=== PATIENT | male | born 1945 | race Caucasian/White ===

== ENCOUNTER → 2017-04-28 | Outpatient (CLI) | payer BC ==
[~2017-04-28] MED LIST: ACET500C6 PO; ASPEC81 PO; ATOR-26 PO; CARV3.12 PO; FINA5TAB PO; LISI-461 PO; MULT-506 PO; TAMS0.4C38 PO; WARF5TAB7 PO; WARF5TAB90 PO
== END | disposition home or self-care (01) ==
LOC: C.LAB1850 15:14
PROVIDERS: ATTEND Urology
DX: N40.1 Benign prostatic hyperplasia with lower urinary tract symptoms (principal); R97.20 Elevated prostate specific antigen [PSA]

== ENCOUNTER → 2017-05-16 | Outpatient (CLI) | payer BC ==
[2017-05-16 12:53] LABS: ALT/SGPT 26 U/L (12-78); AST/SGOT 25 U/L (15-37); BLOOD UREA NITROGEN 18 mg/dl (7-18); BUN/CREATININE RATIO 18.1 (10-20); CALCIUM 8.8 mg/dl (8.5-10.1); CARBON DIOXIDE 23 mmol/L (21-32); CHLORIDE 107 mmol/L (98-107); CREATININE 0.97 mg/dl (0.60-1.40); GLUCOSE 85 mg/dl (70-99); POTASSIUM 4.8 mmol/L (3.5-5.1); SODIUM 137 mmol/L (136-145)
[2017-05-16 13:03] LABS: ALB/GLOB RATIO 1.2 (0.9-2); ALKALINE PHOSPHATASE 72 U/L (45-117)
== END | disposition home or self-care (01) ==
LOC: C.LAB1850 11:14
PROVIDERS: ATTEND Family Medicine
DX: R94.30 Abnormal result of cardiovascular function study, unspecified (principal); Z95.2 Presence of prosthetic heart valve; R68.89 Other general symptoms and signs

== ENCOUNTER → 2017-12-12 | Day surgery (SDC) | payer BC ==
--- NOTE | 2017-11-27 12:40 | PAT Medication Instructions ---
Service Date Nov 27, 2017. Current Home Medication List Acetaminophen (Tylenol), Unknown Dose PO UD PRN for Pain Aspirin (Aspirin Ec), 81 MG PO QPM Atorvastatin (Lipitor), 80 MG PO HS Carvedilol (Carvedilol), 1 TAB PO BID Finasteride (Proscar), 5 MG PO QAM Lisinopril (Zestril), 15 MG PO QAM Multivitamin (Multivitamin), 1 TAB PO QAM Tamsulosin Hcl (Flomax), 0.4 MG PO PM Medication Instructions For Your Scheduled Surgery - Hold the following medications the morning of surgery: Finasteride (Proscar), 5 MG PO QAM Lisinopril (Zestril), 15 MG PO QAM Multivitamin (Multivitamin), 1 TAB PO QAM - Take the following medications the morning of surgery with a sip of water: Acetaminophen (Tylenol), Unknown Dose PO UD PRN for Pain (if needed, can be taken up to four hours before surgery) Carvedilol (Carvedilol), 1 TAB PO BID - Take the following medications as scheduled the night before surgery: Acetaminophen (Tylenol), Unknown Dose PO UD PRN for Pain (if needed) Aspirin (Aspirin Ec), 81 MG PO QPM Atorvastatin (Lipitor), 80 MG PO HS Carvedilol (Carvedilol), 1 TAB PO BID Tamsulosin Hcl (Flomax), 0.4 MG PO PM If you have any questions please call us at [phone] or [phone] or [phone]
[2017-11-27 13:18] LABS: BASO % 0.3 %; BASO ABS # 0.02 K/uL (0-0.2); EOS % 2.9 %; EOS ABS # 0.18 K/uL (0-0.5); HEMATOCRIT 43.7 % (42-52); HEMOGLOBIN 14.9 g/dL (14.0-18.0); IG# 0.01 K/uL (0.00-0.02); LYMPH % 31.4 %; LYMPH ABS # 1.95 K/uL (1.2-3.4); MEAN CELL VOLUME 93.6 fL (80-100); MEAN CORPUSCULAR HEMOGLOBIN 31.9 pg (25-34); MEAN CORPUSCULAR HGB CONC 34.1 g/dl (32-36); MEAN PLATELET VOLUME 10.2 fL (7.4-10.4); MONO % 6.9 %; MONO ABS # 0.43 K/uL (0.11-0.59); NEUT % 58.3 %; NEUT ABS # 3.63 K/uL (1.4-6.5); PLATELET COUNT 149 K/uL (130-400); RED CELL DISTRIBUTION WIDTH CV 12.8 % (11.5-14.5); RED CELL DISTRIBUTION WIDTH SD 43.8 fL (36.4-46.3); WHITE BLOOD COUNT 6.22 K/uL (4.8-10.8)
[2017-11-27 13:27] LABS: PTT PATIENT 27.5 SECONDS (21.0-31.0)
[2017-11-27 13:38] LABS: CALCIUM 8.8 mg/dl (8.5-10.1); CREATININE 1.03 mg/dl (0.60-1.40); POTASSIUM 4.8 mmol/L (3.5-5.1)
--- NOTE | 2017-11-27 13:49 | DIAGNOSTIC IMAGING REPORT ---
TWO VIEW CHEST CLINICAL HISTORY: Preoperative examination. FINDINGS: PA and lateral chest radiographs are compared to study dated 12/30/2015 and correlated with chest CT dated 02/10/2016. A 3-lead cardiac AICD is unchanged in position and partially obscures the left upper chest. The patient is status post midline sternotomy end there is evidence of previous mitral valve surgery. The heart is enlarged. The pulmonary vasculature is noncongested. Chronic interstitial thickening is similar to previous. No airspace consolidation or pleural effusion is identified. There is no pneumothorax. The skeletal structures are osteopenic. Degenerative change and hyperkyphosis are noted in the thoracic spine. Bilateral shoulder arthroplasties are in place.. IMPRESSION: 1. Cardiomegaly and AICD. There is no radiographic evidence of congestive failure. 2. The lungs are clear. Electronically signed by: Arvin Smith M.D. 11/27/2017 1:48 PM Dictated Date/Time: 11/27/2017 1:45 PM
--- NOTE | 2017-12-11 17:20 | HISTORY & PHYSICAL EXAMINATION ---
DATE OF ADMISSION: 12/12/2017 CHIEF COMPLAINT: Olecranon bursitis of the right elbow. HISTORY OF PRESENT ILLNESS: Rickey is a pleasant 72-year-old male who has been complaining of right elbow pain. He initially had a large bursitis about 3 years ago. He was scheduled to have it operated on, but it went away. It has since returned. He has always had this on and off bursitis of his right elbow. It has become more and more painful. He has trouble going to the gym and doing exercises and is hurting his triceps more and more. Recent x-rays do show calcific tendonitis of the distal triceps tendon as well. He has elected to proceed with excision of the bursa and calcific tendonitis. PAST MEDICAL HISTORY: Significant for heart disease with pacemaker placement and Bovine mitral valve, hyperlipidemia, hypertension, and BPH. PAST SURGICAL HISTORY: Significant for tonsillectomy, left knee arthroscopy, left total knee arthroplasty, bilateral shoulder arthroscopies, and bilateral shoulder replacements, hernia repair and mitral valve replacement and pacemaker placement. ALLERGIES: POISON TETE. MEDICATIONS: Include atorvastatin, lisinopril, carvedilol, Flomax, and finasteride. FAMILY HISTORY: Significant for heart disease. SOCIAL HISTORY: He is , has 2 kids. He has 1-2 drinks per day. His is able to take care of him. REVIEW OF SYSTEMS: He complains of right elbow pain and swelling. All other pertinent review of systems are negative. PHYSICAL EXAMINATION: CONSTITUTIONAL: Well-developed, well-nourished male, in no apparent distress. HEENT: Pupils equal, round and reactive to light. Extraocular motion is intact. Oral mucosa is pink and moist. HEART: Regular rate per radial pulse. LUNGS: [place] symmetrically bilaterally with no audible breath sounds. ABDOMEN: Soft, nontender, nondistended. MUSCULOSKELETAL: On physical examination of the right elbow, there is a moderate size olecranon bursa. This is slightly fluctuant. There are no signs of infection. He has tenderness to palpation directly over the area of the triceps. He has 5/5 muscle strength with elbow extension. X-rays do show moderate area of calcific tendonitis of the distal triceps tendon. There is a moderately sized olecranon bursa as well which we can see in the soft tissue shadows. There is no arthritis. 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 PLAN: Will proceed with excision of olecranon bursa and excision of calcific tendonitis from the triceps tendon. Postoperatively, he will be placed in a soft dressing and likely discharged to home on oral pain medications.
[~2017-12-12] VITALS: Ht 193 cm; Wt 113.0 kg
[~2017-12-12] MED LIST changes: +ACET-1256 PO; -ACET500C6 PO; +ACETAMINOPHEN 500 MG TAB PO SCH; -ASPEC81 PO; +ASPI81TA28 PO; +ATROPINE SULFATE 0.1 MG/ML 5ML SYR IV PRN; +BUPIVACAINE 0.25% 30 ML VIAL ONE; -CARV3.12 PO; +CEFAZOLIN 2000MG IV PUSH 15 ML IV SCH; +CRG125 PO; +DEXAMETHASONE SOD INJ 4 MG/ML VIAL ONE; +EpHEDrine SULFATE INJ 50 MG/ML AMP IV PRN; +EpHEDrine SULFATE INJ 50 MG/ML AMP ONE; +EpINEphrine INJ 1MG/ML AMP 1 MG/ML AMP ONE; +FAMOTIDINE 20 MG TAB PO SCH; +FENTANYL CITRATE INJ 50 MCG/1 ML 2 ML VIAL IV PRN; +FENTANYL CITRATE INJ 50 MCG/1 ML 2 ML VIAL ONE; +GABAPENTIN 300 MG CAP PO SCH; +LACTATED RINGER'S 1000ML 1,000 ML IV SCH; +LACTATED RINGER'S 1000ML IV SCH; +LIDOCAINE HCL 2% 2 ML VIAL (20MG/ML) ONE; +MIDAZOLAM HCL 1 MG/ML 2ML VIAL ONE; +ONDANSETRON INJ 2 MG/ML 2 ML VIAL IV PRN; +ONDANSETRON INJ 2 MG/ML 2 ML VIAL ONE; +PHENYLEPHRINE 100MCG/ML 5ML SYR ONE; +PROPOFOL IV EMULSION 10 MG/ML 20 ML VIAL ONE; +SODIUM CHLORIDE 0.9% 1000ML 1,000 ML IV SCH; +TRAM-10 PO; +TRAMADOL HCL 50 MG TAB PO PRN; -WARF5TAB7 PO; -WARF5TAB90 PO
--- NOTE | 2017-12-12 10:55 | History & Physical Bridge Note ---
H&P Re-Evaluation Bridge Note: I have examined the patient, reviewed the History & Physical and in the interval since the performance of the History & Physical I have noted the following changes of clinical significance: No changes noted
[2017-12-12 11:19] VITALS: BP 122/78; PULSE 68; TEMP 36.4; Ht 193 cm; Wt 113.0 kg
--- NOTE | 2017-12-12 14:41 | [facility] Post Operative Brief Note ---
Immediate Operative Summary Operative Date December 12, 2017. Pre-Operative Diagnosis Right elbow chronic olecranon bursitis Post-Operative Diagnosis Right elbow chronic olecranon bursitis, triceps tendon tear Procedure(s) Performed Right Elbow Olecranon Bursectomy, triceps tendon repair Surgeon Dr. Valdivia Zumba Instructor Surgeon(s) Marko Rutherford PA-C Estimated Blood Loss 10 cc Findings Consistent with Post-Op Diagnosis Specimens none, as per surgeon Drains None Anesthesia Type General Complication(s) none Disposition Disposition: Recovery Room / PACU
--- NOTE | 2017-12-12 14:46 | Discharge Instructions ---
Discharge Instructions Date of Service December 12, 2017. Admission Reason for Admission: Chronic Olecranon Bursitis Right Elbow Discharge Discharge Diagnosis / Problem: SAME ABOVE Discharge Goals Goal(s): Decrease discomfort, Improve function Activity Recommendations Activity Limitations: as noted below Lifting Limitations: until after follow-up appointment Exercise/Sports Limitations: until after follow-up appointment . Instructions / Follow-Up Instructions / Follow-Up MEDICATIONS: * Resume previous medications unless instructed otherwise by your surgeon. * Always take pain medication on a full stomach or with food to avoid upset stomach. * Do not drink alcohol or drive while taking narcotics. * Ibuprofen or Tylenol may be taken if narcotic not needed. SPECIAL CARE INSTRUCTIONS: __ None _X_ Keep extremity elevated and iced x 48 hours; apply ice 20-30 minutes 8-10 times/day. May remove at night. _X_ Sling _X_24 hrs/day __ Remove at night __ Shoulder Immobilizer __ 24 hrs/day __ Remove at night _X_ Dressing _X_ Maintain until seen in office, may shower with plastic over site __ Remove dressings in 24-48 hours and then may shower __ Cover incisions with band-aids after showering __ Do not remove steri-strips Call physician if chills or temperature rises above 102 degrees or pain unrelieved by prescribed pain medications at . . Current Hospital Diet Patient's current hospital diet: Discharge Diet Recommended Diet: Regular Diet Fluid Restriction: None Procedures Procedures Performed: Right Elbow Olecranon Bursectomy, triceps tendon repair Pending Studies Studies pending at discharge: no Laboratory Results Lipid Panel Test 12/12/17 10:14 Range/Units Triglycerides Level 128 0-150 mg/dl Cholesterol Level 150 0-200 mg/dl HDL Cholesterol 61 mg/dl Cholesterol/HDL Ratio 2.5 LDL Cholesterol, Calculated 63 mg/dl Medical Emergencies . Who to Call and When: Medical Emergencies: If at any time you feel your situation is an emergency, please call 911 immediately. . Non-Emergent Contact Non-Emergency issues call your: Primary Care Provider Call Non-Emergent contact if: you have a fever, temperature is above 101.5 . "Provider Documentation" section prepared by Christian Rutherford. .
--- NOTE | 2017-12-12 14:50 | DIAGNOSTIC IMAGING REPORT ---
R ELBOW 2 VIEWS CLINICAL HISTORY: RT ELBOW BURSA Fluoroscopy time: 37.9 seconds FINDINGS: A single fluoroscopic spot image of the right elbow was submitted for review. Focal skin defect at the olecranon consistent with the site of incision. IMPRESSION: Fluoroscopy provided for excision of an olecranon bursa. Electronically signed by: Sammy Jones M.D. 12/12/2017 2:48 PM Dictated Date/Time: 12/12/2017 2:47 PM
--- NOTE | 2017-12-12 15:09 | Anesthesiology Progress Note ---
Anesthesia Post Op Note Date & Time December 12, 2017 at 15:08 Vital Signs Vital Signs Past 12 Hours Date Time Temp Pulse Resp B/P (MAP) Pulse Ox O2 Delivery O2 Flow Rate FiO2 12/12/17 11:19 36.4 68 18 122/78 (93) Room Air Notes Mental Status: alert / awake / arousable, participated in evaluation Pt Amnestic to Procedure: Yes Nausea / Vomiting: adequately controlled Pain: adequately controlled Airway Patency, RR, SpO2: stable & adequate BP & HR: stable & adequate Hydration State: stable & adequate Anesthetic Complications: no major complications apparent
[2017-12-12 15:40] VITALS: BP 148/75; PULSE 50; TEMP 36.4; O2SAT 98
--- NOTE | 2017-12-12 15:45 | OPERATIVE REPORT ---
DATE OF OPERATION: 12/12/2017 PREOPERATIVE DIAGNOSIS: Chronic olecranon bursitis of the right elbow. POSTOPERATIVE DIAGNOSIS: Chronic olecranon bursitis with a triceps tendon tear. PROCEDURE: An open right shoulder olecranon bursectomy with an open triceps tendon repair. SURGEON: Dr. Paras Valdivia TRACER CLERK: Christian Rutherford PA-C, whose assistance was necessary for retraction and closure. ANESTHESIA: General. COMPLICATIONS: None. CONDITION: Stable to PACU. INDICATIONS: Rickey is a pleasant 72-year-old male who has been dealing with chronic right elbow olecranon bursitis. It waxed and waned over several years. Recently it stayed swollen and has not gone down. He has elected to proceed with olecranon bursectomy. OPERATION AND FINDINGS: On 12/12/2017, he arrived at [facility] for the above procedure. He was seen in the preoperative holding area and the operative extremity was identified and signed. He was given a preoperative antibiotic, taken back to the operating room, laid on the table in supine position and put under general anesthesia. The right elbow was then prepped and draped in sterile fashion. Time-out was done. The patient's operative extremity was properly identified. A midline incision was made over the olecranon. Dissection was taken down to the bursa. The bursal tissue was excised with tenotomy scissors. Once the bursal tissue was excised, it was evident that there was a tear of the triceps tendon. There were small areas of calcific tendonitis that were excised. A rongeur was used to remove any osteophytes off the tip of the olecranon. The triceps tendon was then repaired with 2 Arthrex 4.5 mm SutureTak anchors. The FiberWires were passed through the tendon and tied down appropriately. A #1 Vicryl suture was then used to close down the remaining aspects of the triceps tendon. This gave a nice repair back down to the posterior olecranon. The elbow was brought through a full range of motion and everything felt to be stable. There was not too much tension on the repair. The wound was then irrigated and closed with 3-0 Vicryl and 4-0 nylon suture. He was placed in a posterior splint, extubated, and transferred to a [facility] and taken to postanesthesia care in stable condition. He tolerated the procedure well. I attest to the content of the Intraoperative Record and any orders documented therein. Any exception s are noted below.
[2017-12-12 16:10] VITALS: BP 131/73; PULSE 52; TEMP 36.4; O2SAT 98
== END | disposition home or self-care (01) ==
LOC: C.ACU 10:36
PROVIDERS: ATTEND Orthopaedic Surgery
DX: S46.311A Strain of muscle, fascia and tendon of triceps, right arm, initial encounter (principal); M70.21 Olecranon bursitis, right elbow; X58.XXXA Exposure to other specified factors, initial encounter; I10 Essential (primary) hypertension; E78.5 Hyperlipidemia, unspecified; N40.0 Benign prostatic hyperplasia without lower urinary tract symptoms; Z95.810 Presence of automatic (implantable) cardiac defibrillator; Z95.2 Presence of prosthetic heart valve; Z96.652 Presence of left artificial knee joint; Z96.611 Presence of right artificial shoulder joint; Z96.612 Presence of left artificial shoulder joint; Z82.49 Family history of ischemic heart disease and other diseases of the circulatory system

== ENCOUNTER → 2017-12-12 | Outpatient (CLI) | payer BC ==
[~2017-12-12] MED LIST changes: -ACETAMINOPHEN 500 MG TAB PO SCH; -ATROPINE SULFATE 0.1 MG/ML 5ML SYR IV PRN; -BUPIVACAINE 0.25% 30 ML VIAL ONE; -CEFAZOLIN 2000MG IV PUSH 15 ML IV SCH; -DEXAMETHASONE SOD INJ 4 MG/ML VIAL ONE; -EpHEDrine SULFATE INJ 50 MG/ML AMP IV PRN; -EpHEDrine SULFATE INJ 50 MG/ML AMP ONE; -EpINEphrine INJ 1MG/ML AMP 1 MG/ML AMP ONE; -FAMOTIDINE 20 MG TAB PO SCH; -FENTANYL CITRATE INJ 50 MCG/1 ML 2 ML VIAL IV PRN; -FENTANYL CITRATE INJ 50 MCG/1 ML 2 ML VIAL ONE; -GABAPENTIN 300 MG CAP PO SCH; -LACTATED RINGER'S 1000ML 1,000 ML IV SCH; -LACTATED RINGER'S 1000ML IV SCH; -LIDOCAINE HCL 2% 2 ML VIAL (20MG/ML) ONE; -MIDAZOLAM HCL 1 MG/ML 2ML VIAL ONE; -ONDANSETRON INJ 2 MG/ML 2 ML VIAL IV PRN; -ONDANSETRON INJ 2 MG/ML 2 ML VIAL ONE; -PHENYLEPHRINE 100MCG/ML 5ML SYR ONE; -PROPOFOL IV EMULSION 10 MG/ML 20 ML VIAL ONE; -SODIUM CHLORIDE 0.9% 1000ML 1,000 ML IV SCH; -TRAMADOL HCL 50 MG TAB PO PRN
[2017-12-12 12:38] LABS: ALBUMIN 4.2 gm/dl (3.4-5.0); ALT/SGPT 24 U/L (12-78); AST/SGOT 22 U/L (15-37); BLOOD UREA NITROGEN 15 mg/dl (7-18); CALCIUM 9.1 mg/dl (8.5-10.1); CARBON DIOXIDE 29 mmol/L (21-32); CHOLESTEROL 150 mg/dl (0-200); CREATININE 1.07 mg/dl (0.60-1.40); GLUCOSE 101 mg/dl (70-99); POTASSIUM 5.1 mmol/L (3.5-5.1); SODIUM 141 mmol/L (136-145)
[2017-12-12 12:50] LABS: ALKALINE PHOSPHATASE 68 U/L (45-117); LDL CHOLESTEROL CALCULATED 63 mg/dl; TOTAL PROTEIN 7.6 gm/dl (6.4-8.2)
== END | disposition home or self-care (01) ==
LOC: C.LAB1850 10:09
PROVIDERS: ATTEND Family Medicine
DX: Z00.00 Encounter for general adult medical examination without abnormal findings (principal); I50.22 Chronic systolic (congestive) heart failure

== ENCOUNTER 2020-07-30 16:04 | Inpatient (IN) ==
[2020-07-30] MEDS ORDERED: DAPTOmycin 525 MG in SYRINGE 0 ML IV STA (16:28)
[2020-07-30] MEDS ORDERED: cefTRIAXone SODIUM 2,000 MG/70 ML BAG IV STA (16:29)
--- NOTE | 2020-07-30 16:51 | XRay Report ---
XR chest 1V portable HISTORY: SEPSIS COMPARISON: Chest CTA 07/29/2020. FINDINGS: No pneumothorax or no pleural effusions. The heart is borderline enlarged. This remains unc hanged. Tortuous thoracic aorta. Poststernotomy changes and left-sided pacemaker/defibrillator again noted. No new focal lung consolidations to suggest pneumonia. No evidence for pulmonary edema. Bilate ral shoulder arthroplasties are again noted. IMPRESSION: No acute process. ACT 112: Negative or not required by law. Electronically signed by: Sammy Jones M.D. 07/30/2020 4:50 PM
--- NOTE | 2020-07-30 16:56 | Emergency Department Note ---
Impression & Plan Bacteremia, Elevated troponin, Thrombocytopenia ED Provider Note NAME: ANDRZEJ BARRAZA AGE: 75 SEX: M : 1945 ARRIVES VIA: Walk-In INFORMANT: Patient, ED PROVIDER(S): Kaleb Jacob DO CHIEF COMPLAINT: Fever HPI: The patient is a 75-year-old male who presented to the emergency department for an evaluation of febrile illness. The patient has been experiencing febrile illness over the last 5 days. His states that she has been checking his temperature multiple times it was not found to be elevated. He presented to emergency department last evening for an evaluation. At that time he was noted to have an elevated temperature but this was not found to be the case on repeated temperature measurements. The patient denies having any rashes. He denies having any diarrhea. He has no cuts in his skin that he knows of. He was seen in our facility yesterday and signed out AGAINST MEDICAL ADVICE. He was started on doxycycline. The patient states that he return today at the request of our department because he was found to have a positive blood culture. The patient has 2 blood cultures are positive for gram-positive cocci in clusters. The patient states that he has had some shortness of breath. He does have a slight cough which is not productive. The patient has a history of valve replacement surgery. ROS: See above HPI for pertinent positives & negatives. A total of 10 systems reviewed and were otherwise negative. PAST MEDICAL HISTORY: See Below PAST SURGICAL HISTORY: See Below FAMILY HISTORY: See Below SOCIAL HISTORY: See Below HOME MEDICATIONS: See Below ALLERGIES: See Below VITALS: See Below PHYSICAL EXAMINATION: GENERAL: Patient is awake alert in no acute distress patient is resting comfortably and showing no signs of anxiety EYES: The conjunctivae are clear. The pupils are round and reactive. EARS, NOSE, MOUTH AND THROAT: The nose is without any evidence of any deformity. NECK: The neck is nontender and supple. RESPIRATORY: Normal respiratory effort was noted. There was no tachypnea or conversational dyspnea. Slight rales were noted at the left base. CARDIOVASCULAR: Regular rate and rhythm noted there no murmurs rubs or gallops normal S1 normal S2. GASTROINTESTINAL: The abdomen is soft. Abdomen is nontender. MUSCULOSKELETAL/EXTREMITIES: There is no evidence of gross deformity full range of motion is noted in the hips and shoulders. SKIN: Skin was warm and dry. Trace pedal edema was noted bilaterally. NEUROLOGIC: Patient is awake alert and oriented x3. MEDICAL DECISION MAKING: The patient is a 75-year-old male who presented to the emergency department with his significant other for an evaluation of febrile illness. The patient's had malaise and subjective fever. He was initially seen in our facility yesterday for similar complaints. At that time he did have a complete work-up including blood cultures. It was advised that he stay in the hospital at that time but the patient did not wish to stay in the hospital and left AGAINST MEDICAL ADVICE. He was started on oral antibiotic regimen. The patient returns to the emergency department today at our request after his blood cultures were positive for gram-positive cocci in clusters. The patient does have a history of aortic valve replacement. For this reason he was treated with IV antibiotics which would cover gram-positive cocci as well as other pathogens. No definite source for the patient's bacteremia could be found. I discussed the patient's laboratory and radiographic studies with him and his significant other. I discussed his case with the on-call [facility]ist. They have agreed to evaluate the patient in the emergency department for further management and disposition. The patient did have an elevation in his white blood cell count compared to yesterday however he was treated with Decadron yesterday because of the possibility of COVID-19 infection. Triage Nursing notes reviewed. Prior medical records reviewed Vital Signs: reviewed and remarkable for elevated blood pressure and bradycardia. Differential diagnosis: Viral syndrome, otitis, pharyngitis, pneumonia, influenza, meningitis, urinary tract infection, sepsis, bacteremia, as well as other pathologies. ER treatment provided: See below Diagnostics interpreted by me: ECG: EKG was obtained in the emergency department. My interpretation is ventricular paced rhythm at 60 bpm. There were no PVCs or tanana beats noted. This was compared to a tracing from July 292019. No significant changes were noted. Cardiac Monitoring: An order was placed for continuous cardiac monitoring. The monitor shows a rate of 65 bpm with paced rhythm. Laboratory studies: As stated above and show below. Imaging studies: See below Consultation(s): 1739: I discussed this case with Dr. Hardwick who is on-call for the [facility] group. Past Med/Surg History Medical History Coronary artery disease Hyperlipidemia Hypertension Social History Smoking Status: Former smoker Tobacco Type: Cigarettes Hx Alcohol Use: Yes Alcohol type: wine and hard liquor Hx Substance Use: No Preferred Language: Malay Communication Ability: Effective Sliding Joint Maker Required: No Beliefs That Will Affect Care: None Current Living Situation: Spouse Other Information That Helps Us Care for You: No Feels Safe at Home: Yes Safety Concerns: Feels Safe At This Time Assistive Devices: None Allergies Allergies Allergy/AdvReac Type Severity Reaction Status Date / Time adhesive AdvReac Severe rips his Verified 07/30/20 17:25 skin Poison Ann Extract/Poison Allergy Severe RASH--NEEDS Uncoded 07/30/20 17:25 [place] Extra STEROID SHOTS FOR REACTION Home Meds Home Medications Medication Instructions Recorded Confirmed acetaminophen [Tylenol] 650 mg PO QID PRN 07/29/20 07/30/20 aspirin 81 mg PO DAILY 07/29/20 07/30/20 atorvastatin 80 mg PO HS 07/29/20 07/30/20 carvedilol 25 mg PO BID 07/29/20 07/30/20 finasteride 5 mg PO QAM 07/29/20 07/30/20 lisinopril 40 mg PO QAM 07/29/20 07/30/20 multivitamin 1 tab PO QAM 07/29/20 07/30/20 tamsulosin 0.8 mg PO QPM 07/29/20 07/30/20 Saima 128 1 applic OPR HS 07/30/20 07/30/20 Previous Rx's Medication Instructions Recorded doxycycline hyclate 100 mg PO BID 10 Days #20 tab 07/29/20 sod phos di, mono-K phos mono 1 tab PO BID #6 tab 07/29/20 [Phospha] Results & Data (ED) Vital Signs Vital Signs - 24 hr 07/30/20 16:05 07/30/20 16:44 07/30/20 17:38 Temperature 36.5 C Temperature Source Oral Pulse Rate 66 Pulse Rate from SpO2 Sensor Respiratory Rate 18 Respiratory Effort / Characteristics Spontaneous Non-Labored Spontaneous Blood Pressure 124/75 Blood Pressure Mean 91 Blood Pressure Position Sitting Pulse Oximetry 96 Oxygen Delivery Method Room Air Room Air Room Air Sepsis Recent Fever Within 48 Hours No Sepsis New/Unexplained Change in Mental Status No Sepsis Action Taken by Nursing No Action Required 07/30/20 18:00 07/30/20 18:20 07/30/20 18:30 Temperature Temperature Source Pulse Rate 56 L 58 L 56 L Pulse Rate from SpO2 Sensor 57 L 55 L Respiratory Rate 20 17 Respiratory Effort / Characteristics Blood Pressure 141/91 H 146/96 H Blood Pressure Mean 101 110 Blood Pressure Position Pulse Oximetry 98 98 98 Oxygen Delivery Method Room Air Sepsis Recent Fever Within 48 Hours Sepsis New/Unexplained Change in Mental Status Sepsis Action Taken by Nursing 07/30/20 18:40 07/30/20 18:50 07/30/20 19:00 Temperature Temperature Source Pulse Rate 59 L 57 L 59 L Pulse Rate from SpO2 Sensor 59 L 57 L 60 Respiratory Rate 23 Respiratory Effort / Characteristics Blood Pressure 146/85 H Blood Pressure Mean 91 Blood Pressure Position Pulse Oximetry 99 99 100 Oxygen Delivery Method Sepsis Recent Fever Within 48 Hours Sepsis New/Unexplained Change in Mental Status Sepsis Action Taken by Nursing 07/30/20 19:10 07/30/20 19:20 07/30/20 19:30 Temperature Temperature Source Pulse Rate 59 L 60 61 Pulse Rate from SpO2 Sensor 59 L 60 61 Respiratory Rate 23 17 22 Respiratory Effort / Characteristics Blood Pressure Blood Pressure Mean Blood Pressure Position Pulse Oximetry 99 100 98 Oxygen Delivery Method Sepsis Recent Fever Within 48 Hours Sepsis New/Unexplained Change in Mental Status Sepsis Action Taken by Nursing 07/30/20 19:31 07/30/20 19:40 07/30/20 20:01 Temperature Temperature Source Pulse Rate 61 62 61 Pulse Rate from SpO2 Sensor 61 62 62 Respiratory Rate 19 24 23 Respiratory Effort / Characteristics Blood Pressure 143/84 H 123/82 Blood Pressure Mean 94 94 Blood Pressure Position Pulse Oximetry 98 98 97 Oxygen Delivery Method Sepsis Recent Fever Within 48 Hours Sepsis New/Unexplained Change in Mental Status Sepsis Action Taken by Nursing 07/30/20 20:31 07/30/20 21:00 Temperature Temperature Source Pulse Rate 63 64 Pulse Rate from SpO2 Sensor 63 64 Respiratory Rate 23 17 Respiratory Effort / Characteristics Blood Pressure 132/76 133/77 Blood Pressure Mean 94 81 Blood Pressure Position Pulse Oximetry 96 97 Oxygen Delivery Method Sepsis Recent Fever Within 48 Hours Sepsis New/Unexplained Change in Mental Status Sepsis Action Taken by Group Home Medications Current Medication List: was personally reviewed by me Laboratory Data Attestation: I reviewed the patient's lab results. Result diagrams: 07/30/20 17:05 12/24/20 17:05 Lab Results 07/30/20 07/30/20 07/30/20 Range/Units 17:05 17:05 17:05 WBC 14.24 H (4.8-10.8) K/uL RBC 4.47 L (4.7-6.1) M/uL Hgb 14.1 (14.0-18.0) g/dL Hct 40.6 L (42-52) % MCV 90.8 (80-100) fL MCH 31.5 (25-34) pg MCHC 34.7 (32-36) g/dL RDW Std Deviation 43.5 (36.4-46.3) fL RDW Coeff of Carlitos 13.1 (11.5-14.5) % Plt Count 118 L (130-400) K/uL MPV 11.1 H (7.4-10.4) fL Immature Gran % (Auto) 0.4 % Neut % (Auto) 88.5 % Lymph % (Auto) 5.1 % [place] % (Auto) 5.9 % Eos % (Auto) 0.0 % Baso % (Auto) 0.1 % Neut # (Auto) 12.60 H (1.4-6.5) K/uL Lymph # (Auto) 0.73 L (1.2-3.4) K/uL [place] # (Auto) 0.84 H (0.11-0.59) K/uL Eos # (Auto) 0.00 (0-0.5) K/uL Baso # (Auto) 0.01 (0-0.2) K/uL Immature Gran # (Auto) 0.06 H (0.00-0.02) K/uL ESR 26 H (0-14) mm/hr PT Cancelled INR Cancelled APTT Cancelled PTT Ratio Cancelled Sodium (136-145) mmol/L Potassium (3.5-5.1) mmol/L Chloride (98-107) mmol/L Carbon Dioxide (21-32) mmol/L Anion Gap (3-11) BUN (7-18) mg/dl Creatinine (0.6-1.4) mg/dl Est Cr Clr Drug Dosing ml/min Est GFR ( Amer) Est GFR (Non-Af Amer) BUN/Creatinine Ratio (10-20) Glucose (70-99) mg/dl Lactate (0.4-2.0) mmol/L Calcium (8.5-10.1) mg/dl Magnesium (1.8-2.4) mg/dl Total Bilirubin (0.2-1) mg/dl AST (15-37) U/L ALT (12-78) U/L Alkaline Phosphatase (45-117) U/L Troponin I (0-0.045) ng/ml C-Reactive Protein (0-0.29) mg/dl Total Protein (6.4-8.2) gm/dl Albumin (3.4-5.0) gm/dl Globulin (2.5-4.0) gm/dl Albumin/Globulin Ratio (0.9-2) Procalcitonin (0-0.5) ng/ml COVID-19 Eval Order SARS-CoV-2, RNA, NAAT (NEGATIVE) 07/30/20 07/30/20 07/30/20 Range/Units 17:05 17:05 17:05 WBC (4.8-10.8) K/uL RBC (4.7-6.1) M/uL Hgb (14.0-18.0) g/dL Hct (42-52) % MCV (80-100) fL MCH (25-34) pg MCHC (32-36) g/dL RDW Std Deviation (36.4-46.3) fL RDW Coeff of Carlitos (11.5-14.5) % Plt Count (130-400) K/uL MPV (7.4-10.4) fL Immature Gran % (Auto) % Neut % (Auto) % Lymph % (Auto) % [place] % (Auto) % Eos % (Auto) % Baso % (Auto) % Neut # (Auto) (1.4-6.5) K/uL Lymph # (Auto) (1.2-3.4) K/uL [place] # (Auto) (0.11-0.59) K/uL Eos # (Auto) (0-0.5) K/uL Baso # (Auto) (0-0.2) K/uL Immature Gran # (Auto) (0.00-0.02) K/uL ESR (0-14) mm/hr PT INR APTT PTT Ratio Sodium 134 L (136-145) mmol/L Potassium 4.1 (3.5-5.1) mmol/L Chloride 106 (98-107) mmol/L Carbon Dioxide 20 L (21-32) mmol/L Anion Gap 9.0 (3-11) BUN 22 H (7-18) mg/dl Creatinine 1.03 (0.6-1.4) mg/dl Est Cr Clr Drug Dosing 86.0 ml/min Est GFR ( Amer) 83.1 Est GFR (Non-Af Amer) 71.7 BUN/Creatinine Ratio 21.4 H (10-20) Glucose 203 H (70-99) mg/dl Lactate 2.0 (0.4-2.0) mmol/L Calcium 8.5 (8.5-10.1) mg/dl Magnesium 2.3 (1.8-2.4) mg/dl Total Bilirubin 0.9 (0.2-1) mg/dl AST 55 H (15-37) U/L ALT 61 (12-78) U/L Alkaline Phosphatase 59 (45-117) U/L Troponin I 0.321 H* (0-0.045) ng/ml C-Reactive Protein 9.09 H (0-0.29) mg/dl Total Protein 6.9 (6.4-8.2) gm/dl Albumin 3.2 L (3.4-5.0) gm/dl Globulin 3.7 (2.5-4.0) gm/dl Albumin/Globulin Ratio 0.9 (0.9-2) Procalcitonin 0.47 (0-0.5) ng/ml COVID-19 Eval Order SARS-CoV-2, RNA, NAAT (NEGATIVE) 07/30/20 07/30/20 07/30/20 Range/Units 18:20 18:20 18:27 WBC (4.8-10.8) K/uL RBC (4.7-6.1) M/uL Hgb (14.0-18.0) g/dL Hct (42-52) % MCV (80-100) fL MCH (25-34) pg MCHC (32-36) g/dL RDW Std Deviation (36.4-46.3) fL RDW Coeff of Carlitos (11.5-14.5) % Plt Count (130-400) K/uL MPV (7.4-10.4) fL Immature Gran % (Auto) % Neut % (Auto) % Lymph % (Auto) % [place] % (Auto) % Eos % (Auto) % Baso % (Auto) % Neut # (Auto) (1.4-6.5) K/uL Lymph # (Auto) (1.2-3.4) K/uL [place] # (Auto) (0.11-0.59) K/uL Eos # (Auto) (0-0.5) K/uL Baso # (Auto) (0-0.2) K/uL Immature Gran # (Auto) (0.00-0.02) K/uL ESR (0-14) mm/hr PT 11.6 INR 1.1 APTT 31.3 H PTT Ratio 1.1 Sodium (136-145) mmol/L Potassium (3.5-5.1) mmol/L Chloride (98-107) mmol/L Carbon Dioxide (21-32) mmol/L Anion Gap (3-11) BUN (7-18) mg/dl Creatinine (0.6-1.4) mg/dl Est Cr Clr Drug Dosing ml/min Est GFR ( Amer) Est GFR (Non-Af Amer) BUN/Creatinine Ratio (10-20) Glucose (70-99) mg/dl Lactate (0.4-2.0) mmol/L Calcium (8.5-10.1) mg/dl Magnesium (1.8-2.4) mg/dl Total Bilirubin (0.2-1) mg/dl AST (15-37) U/L ALT (12-78) U/L Alkaline Phosphatase (45-117) U/L Troponin I (0-0.045) ng/ml C-Reactive Protein (0-0.29) mg/dl Total Protein (6.4-8.2) gm/dl Albumin (3.4-5.0) gm/dl Globulin (2.5-4.0) gm/dl Albumin/Globulin Ratio (0.9-2) Procalcitonin (0-0.5) ng/ml COVID-19 Eval [facility] SARS-CoV-2, RNA, NAAT NEGATIVE (NEGATIVE) Administered Medications Acetaminophen (Acetaminophen 325 Mg Tab) 650 mg PO QID PRN PRN Reason: FEVER/PAIN Stop: 08/29/20 22:46 Last Admin: 07/31/20 02:36 Dose: 650 mg Documented by: [id number] Aspirin (Aspirin 81 Mg Ectab) 81 mg PO DAILY [facility] Stop: 08/30/20 08:59 Last Admin: 07/31/20 08:53 Dose: 81 mg Documented by: [id number] Atorvastatin Calcium (Atorvastatin 40 Mg Tab) 80 mg PO HS [facility] Stop: 08/29/20 22:46 Last Admin: 07/31/20 00:09 Dose: 80 mg Documented by: [id number] Carvedilol (Carvedilol 25 Mg Tab) 25 mg PO BID [facility] Stop: 08/29/20 22:46 Last Admin: 07/31/20 08:52 Dose: Not Given Documented by: [id number] Admin: 07/31/20 00:09 Dose: 25 mg Documented by: [id number] Finasteride (Finasteride 5 Mg Tab) 5 mg PO QAM [facility] Stop: 08/30/20 08:59 Last Admin: 07/31/20 08:53 Dose: 5 mg Documented by: [id number] Heparin Sodium (Porcine) (Heparin Sod 5,000 Unit/0.5 Ml Vial) 5,000 units SQ Q12 [facility] Stop: 08/30/20 08:59 Last Admin: 07/31/20 10:37 Dose: 5,000 units Documented by: [id number] Lisinopril (Lisinopril 40 Mg Tab) 40 mg PO QAM [facility] Stop: 08/30/20 08:59 Last Admin: 07/31/20 08:53 Dose: 40 mg Documented by: [id number] Multivitamins (Multivitamin Tab) 1 tab PO QAM [facility] Stop: 08/30/20 08:59 Last Admin: 07/31/20 08:53 Dose: 1 tab Documented by: [id number] Potassium Phosphate (Pot Phosphate Monobasic W/ Sod Tab) 1 tab PO BID [facility] Stop: 08/29/20 22:46 Last Admin: 07/31/20 08:53 Dose: 1 tab Documented by: [id number] Admin: 07/31/20 00:09 Dose: 1 tab Documented by: [id number] Tamsulosin HCl (Tamsulosin Hcl 0.4 Mg Cap) 0.8 mg PO QPM [facility] Stop: 08/29/20 22:46 Last Admin: 07/31/20 00:10 Dose: 0.8 mg Documented by: [id number] Discontinued Medications Daptomycin 525 mg/ Syringe 10.5 mls @ 0 mls/min IV NOW STA Stop: 07/30/20 16:29 Last Admin: 07/30/20 17:55 Dose: 5 mls/min Documented by: [id number] Ceftriaxone Sodium (Rocephin) 2,000 mg in 70 mls @ 140 mls/hr IV NOW STA Stop: 07/30/20 16:58 Last Infusion: 07/30/20 17:57 Dose: 0 mls/hr Documented by: [id number] Admin: 07/30/20 17:27 Dose: 140 mls/hr Documented by: [id number] Imaging Data Radiologist's Impression: Patient: ANDRZEJ BARRAZA Admit Date: 07/30/20 MR#: [id number] Address1: [address] [place] [address] Acct ID:[id number] Address2: Date: 1945 [facility] Zip: [place] [address] Age: 75 Location: ED Sex: M Room/Bed: Att Phy: Diagnosis: BLOOD INFECTION Anne Phy: Hemal Springer MD Service Date: 07/30/20 Fam Phy: Interpreting Phy: Sammy Jones MD Admit Phy: Ordering Phy: Kaleb Jacob DO cc: ~ XR chest 1V portable HISTORY: SEPSIS COMPARISON: Chest CTA 07/29/2020. FINDINGS: No pneumothorax or no pleural effusions. The heart is borderline enlarged. This remains unchanged. Tortuous thoracic aorta. Poststernotomy changes and left-sided pacemaker/defibrillator again noted. No new focal lung consolidations to suggest pneumonia. No evidence for pulmonary edema. 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 IMPRESSION: No acute process. ACT 112: Negative or not required by law. Electronically signed by: Sammy Jones M.D. 07/30/2020 4:50 PM Dictated: 07/30/[id number] Transcribed: 07/30/201648 Blood Pressure Blood Pressure Findings: Elevated blood pressure Blood Pressure Disposition: further management by hospitalist Discharge Plan Visit Data Chief Complaint: Infection Stated Complaint: BLOOD INFECTION ED Provider: Kaleb Jacob Discharge Problem: Bacteremia, Elevated troponin, Thrombocytopenia Patient Disposition: Admitted As Inpatient Condition: Good Discharge Instructions Interventions: ED Discharge Assessment Last Done: 07/30/20 22:26
[2020-07-30 17:20] LABS: Basophils # (auto) 0.01 K/uL (0-0.2); Basophils % (auto) 0.1 %; Hematocrit (blood only) 40.6 % (42-52); Hemoglobin 14.1 g/dL (14.0-18.0); Immature Granulocytes # (auto) 0.06 K/uL (0.00-0.02); Immature Granulocytes % (auto) 0.4 %; Lymphocytes # (auto) 0.73 K/uL (1.2-3.4); Lymphocytes % (auto) 5.1 %; Mean Corpuscular Hemoglobin 31.5 pg (25-34); Mean Corpuscular Hgb Conc 34.7 g/dL (32-36); Mean Corpuscular Volume 90.8 fL (80-100); Mean Platelet Volume 11.1 fL (7.4-10.4); Monocytes # (auto) 0.84 K/uL (0.11-0.59); Monocytes % (auto) 5.9 %; Neutrophils % (auto) 88.5 %; Platelet Count 118 K/uL (130-400); RDW Coefficient of Variation 13.1 % (11.5-14.5); RDW Standard Deviation 43.5 fL (36.4-46.3); Red Blood Count 4.47 M/uL (4.7-6.1); White Blood Count 14.24 K/uL (4.8-10.8)
[2020-07-30 17:53] LABS: Albumin Level 3.2 gm/dl (3.4-5.0); Bilirubin,Total 0.9 mg/dl (0.2-1); Calcium 8.5 mg/dl (8.5-10.1)
[2020-07-30 17:54] LABS: Albumin Globulin Ratio 0.9 (0.9-2); BUN Creatinine Ratio 21.4 (10-20); C Reactive Protein 9.09 mg/dl (0-0.29); Est GFR (African American) 83.1; Est GFR (Non-African American) 71.7; Globulin 3.7 gm/dl (2.5-4.0); Magnesium 2.3 mg/dl (1.8-2.4); Potassium 4.1 mmol/L (3.5-5.1); Total Protein 6.9 gm/dl (6.4-8.2); Troponin I 0.321 ng/ml (0-0.045)
[2020-07-30 18:45] LABS: INR 1.1 (0.9-1.1); Partial Thromboplastin Ratio 1.1; Partial Thromboplastin Time 31.3 Seconds (21.0-31.0); Prothrombin Time 11.6 Seconds (9.0-12.0)
--- NOTE | 2020-07-30 19:34 | History & Physical Report ---
Date of Service July 30, 2020 Assessment & Plan (1) Gram-positive cocci in clusters: Daptomycin 6 mg/kg daily and Rocephin 1000 mg every 12 hours Echo pending PICC line placement -Await culture results -PICC line consent placed on chart Present on Admission?: Yes (2) Dyspnea on minimal exertion: (3) Elevated troponin: Unclear significance -Possibly related to bacteremia Present on Admission?: Yes (4) Thrombocytopenia: Undetermined significance -Possible viral syndrome versus secondary to bacteremia Present on Admission?: Yes (5) Elevated AST (SGOT): BMI 29 -Acute hepatitis panel -Possible/probable fatty tissue liver disease -Liver ultrasound Present on Admission?: Yes (6) Bacteremia: See gram-positive cocci in clusters (7) Hyperlipidemia: Continue atorvastatin 80 mg q. nightly Present on Admission?: Yes (8) Hypertension: Coreg 25 mg twice daily Lisinopril 40 mg every morning (9) Coronary artery disease: Currently on aspirin, beta-gianni, MARNIE inhibitor, statin Present on Admission?: Yes History of Present Illness Chief Complaint: Gram-positive bacteremia Primary Care Provider: Hemal Springer Patient is a 75-year-old male who presents after being called back from the emergency department after having 2 out of 2 blood cultures be positive for gram-positive cocci in clusters. Past medical history includes coronary artery disease status post PCI with status post mitral valve repair and aortic valve replacement done at the [facility]. He subsequently had an AICD/pacemaker placed, this occurred in 2015. He presented yesterday with worsening cough, congestion, suppose it subjective fevers, body aches and weakness that had evolved since Monday. His family was concerned of COVID-19. He denied any known COVID-19 exposures. During history today the patient denied reported fevers, documented that he was febrile to 40.4 in the emergency department. Yesterday he was found to have a white count within normal limits, mild anemia at 13.9 and 40 with mild thrombocytopenia and 113. His AST was 77, initial troponin was 0.49 with a delta of 0.45 which is essentially unchanged, the patient's brain natruretic peptide was mildly elevated at 3400, procalcitonin was 0.51. Additional studies were performed and ultimately the patient decided to leave AGAINST MEDICAL ADVICE. He returns today after being contacted again for positive blood cultures. Patient's white count is mildly elevated to 14.24 this is a change from yesterday of note he did receive steroids while in the emergency department. His thrombocytopenia largely remains unchanged at 118 today absolute neutrophils mildly increased, coagulation profile remains unchanged, he has mild hyponatremia at 134 blood sugars are mildly elevated and his troponins are decreasing 0.3-1 today. His CRP is elevated and his albumin is mildly low at 3.2 he has had 2 - Covid test in the last 48 hours. Allergies Allergy/AdvReac Type Severity Reaction Status Date / Time adhesive AdvReac Severe rips his Verified 07/30/20 17:25 skin Poison Ann Extract/Poison Allergy Severe RASH--NEEDS Uncoded 07/30/20 17:25 [place] Extra STEROID SHOTS FOR REACTION Home Medications Medication Instructions Recorded Confirmed Type acetaminophen [Tylenol] 650 mg PO QID PRN 07/29/20 07/30/20 History aspirin 81 mg PO DAILY 07/29/20 07/30/20 History atorvastatin 80 mg PO HS 07/29/20 07/30/20 History carvedilol 25 mg PO BID 07/29/20 07/30/20 History doxycycline hyclate 100 mg PO BID 10 Days #20 tab 07/29/20 07/30/20 Rx finasteride 5 mg PO QAM 07/29/20 07/30/20 History lisinopril 40 mg PO QAM 07/29/20 07/30/20 History multivitamin 1 tab PO QAM 07/29/20 07/30/20 History sod phos di, mono-K phos mono 1 tab PO BID #6 tab 07/29/20 07/30/20 Rx [Phospha] tamsulosin 0.8 mg PO QPM 07/29/20 07/30/20 History Saima 128 1 applic OPR HS 07/30/20 07/30/20 History Past Med/Surg History Medical History Coronary artery disease Hyperlipidemia Hypertension Social History Smoking Status: Never smoker Tobacco Type: Cigarettes Preferred Language: Luxembour[place] Feels Safe at Home: Yes Review of Systems Review of Systems: All systems reviewed & are unremarkable except as noted in HPI & below No diarrhea, constipation several days ago was given MiraLAX x1 which was effective, no rash, there was a report of a skin irritation on the right anterior chest which they had placed a Band-Aid, the patient reports that he may have excoriated that area. They deny any abscess or carbuncle/furuncle formation. Physical Exam Physical Exam: General: Well-nourished male appears younger than stated age I have reviewed the recorded vital signs Neurological: No obvious focal deficit, Moves all 4 extremities, Psychological: Alert and oriented x4, conversant appropriate following complex commands Eyes: Pupils are equal, round and reactive to light, anicteric sclera. Symmetrical lids. HENT: Oropharynx Clear, moist Mucous Membranes. Neck: Supple. Symmetric. trachea midline. No thyromegaly. Cardiovascular: Normal peripheral perfusion. Distal pulses and capillary refill intact. No JVD. 2 out of 6 murmur Respiratory: Respirations are non-labored, no accessory muscle use. Breath sounds are equal. Gastrointestinal: Soft. Non-distended. Lymphatic: No cervical lymphadenopathy. Musculoskeletal: No deformity. No clubbing nor cyanosis. Skin: No stigmata of endocarditis Results & Data Results & Data ([facility]) Vital Signs (Past 12 Hours) Vital Signs Temp Pulse Resp BP Pulse Ox 07/30/20 16:05 36.5 C 66 18 124/75 96 Laboratory Results 07/30/20 07/30/20 07/30/20 Range/Units 18:27 18:20 18:20 WBC (4.8-10.8) K/uL RBC (4.7-6.1) M/uL Hgb (14.0-18.0) g/dL Hct (42-52) % MCV (80-100) fL MCH (25-34) pg MCHC (32-36) g/dL RDW Std Deviation (36.4-46.3) fL RDW Coeff of Carlitos (11.5-14.5) % Plt Count (130-400) K/uL MPV (7.4-10.4) fL Immature Gran % (Auto) % Neut % (Auto) % Lymph % (Auto) % [place] % (Auto) % Eos % (Auto) % Baso % (Auto) % Neut # (Auto) (1.4-6.5) K/uL Lymph # (Auto) (1.2-3.4) K/uL [place] # (Auto) (0.11-0.59) K/uL Eos # (Auto) (0-0.5) K/uL Baso # (Auto) (0-0.2) K/uL Immature Gran # (Auto) (0.00-0.02) K/uL ESR (0-14) mm/hr PT 11.6 INR 1.1 APTT 31.3 H PTT Ratio 1.1 Sodium (136-145) mmol/L Potassium (3.5-5.1) mmol/L Chloride (98-107) mmol/L Carbon Dioxide (21-32) mmol/L Anion Gap (3-11) BUN (7-18) mg/dl Creatinine (0.6-1.4) mg/dl Est Cr Clr Drug Dosing ml/min Est GFR ( Amer) Est GFR (Non-Af Amer) BUN/Creatinine Ratio (10-20) Glucose (70-99) mg/dl Lactate (0.4-2.0) mmol/L Calcium (8.5-10.1) mg/dl Magnesium (1.8-2.4) mg/dl Total Bilirubin (0.2-1) mg/dl AST (15-37) U/L ALT (12-78) U/L Alkaline Phosphatase (45-117) U/L Troponin I (0-0.045) ng/ml C-Reactive Protein (0-0.29) mg/dl Total Protein (6.4-8.2) gm/dl Albumin (3.4-5.0) gm/dl Globulin (2.5-4.0) gm/dl Albumin/Globulin Ratio (0.9-2) Procalcitonin (0-0.5) ng/ml COVID-19 Eval [facility] SARS-CoV-2, RNA, NAAT NEGATIVE (NEGATIVE) 07/30/20 07/30/20 07/30/20 Range/Units 17:05 17:05 17:05 WBC (4.8-10.8) K/uL RBC (4.7-6.1) M/uL Hgb (14.0-18.0) g/dL Hct (42-52) % MCV (80-100) fL MCH (25-34) pg MCHC (32-36) g/dL RDW Std Deviation (36.4-46.3) fL RDW Coeff of Carlitos (11.5-14.5) % Plt Count (130-400) K/uL MPV (7.4-10.4) fL Immature Gran % (Auto) % Neut % (Auto) % Lymph % (Auto) % [place] % (Auto) % Eos % (Auto) % Baso % (Auto) % Neut # (Auto) (1.4-6.5) K/uL Lymph # (Auto) (1.2-3.4) K/uL [place] # (Auto) (0.11-0.59) K/uL Eos # (Auto) (0-0.5) K/uL Baso # (Auto) (0-0.2) K/uL Immature Gran # (Auto) (0.00-0.02) K/uL ESR (0-14) mm/hr PT INR APTT PTT Ratio Sodium 134 L (136-145) mmol/L Potassium 4.1 (3.5-5.1) mmol/L Chloride 106 (98-107) mmol/L Carbon Dioxide 20 L (21-32) mmol/L Anion Gap 9.0 (3-11) BUN 22 H (7-18) mg/dl Creatinine 1.03 (0.6-1.4) mg/dl Est Cr Clr Drug Dosing 86.0 ml/min Est GFR ( Amer) 83.1 Est GFR (Non-Af Amer) 71.7 BUN/Creatinine Ratio 21.4 H (10-20) Glucose 203 H (70-99) mg/dl Lactate 2.0 (0.4-2.0) mmol/L Calcium 8.5 (8.5-10.1) mg/dl Magnesium 2.3 (1.8-2.4) mg/dl Total Bilirubin 0.9 (0.2-1) mg/dl AST 55 H (15-37) U/L ALT 61 (12-78) U/L Alkaline Phosphatase 59 (45-117) U/L Troponin I 0.321 H* (0-0.045) ng/ml C-Reactive Protein 9.09 H (0-0.29) mg/dl Total Protein 6.9 (6.4-8.2) gm/dl Albumin 3.2 L (3.4-5.0) gm/dl Globulin 3.7 (2.5-4.0) gm/dl Albumin/Globulin Ratio 0.9 (0.9-2) Procalcitonin 0.47 (0-0.5) ng/ml COVID-19 Eval Order SARS-CoV-2, RNA, NAAT (NEGATIVE) 07/30/20 07/30/20 07/30/20 Range/Units 17:05 17:05 17:05 WBC 14.24 H (4.8-10.8) K/uL RBC 4.47 L (4.7-6.1) M/uL Hgb 14.1 (14.0-18.0) g/dL Hct 40.6 L (42-52) % MCV 90.8 (80-100) fL MCH 31.5 (25-34) pg MCHC 34.7 (32-36) g/dL RDW Std Deviation 43.5 (36.4-46.3) fL RDW Coeff of Carlitos 13.1 (11.5-14.5) % Plt Count 118 L (130-400) K/uL MPV 11.1 H (7.4-10.4) fL Immature Gran % (Auto) 0.4 % Neut % (Auto) 88.5 % Lymph % (Auto) 5.1 % [place] % (Auto) 5.9 % Eos % (Auto) 0.0 % Baso % (Auto) 0.1 % Neut # (Auto) 12.60 H (1.4-6.5) K/uL Lymph # (Auto) 0.73 L (1.2-3.4) K/uL [place] # (Auto) 0.84 H (0.11-0.59) K/uL Eos # (Auto) 0.00 (0-0.5) K/uL Baso # (Auto) 0.01 (0-0.2) K/uL Immature Gran # (Auto) 0.06 H (0.00-0.02) K/uL ESR 26 H (0-14) mm/hr PT Cancelled INR Cancelled APTT Cancelled PTT Ratio Cancelled Sodium (136-145) mmol/L Potassium (3.5-5.1) mmol/L Chloride (98-107) mmol/L Carbon Dioxide (21-32) mmol/L Anion Gap (3-11) BUN (7-18) mg/dl Creatinine (0.6-1.4) mg/dl Est Cr Clr Drug Dosing ml/min Est GFR ( Amer) Est GFR (Non-Af Amer) BUN/Creatinine Ratio (10-20) Glucose (70-99) mg/dl Lactate (0.4-2.0) mmol/L Calcium (8.5-10.1) mg/dl Magnesium (1.8-2.4) mg/dl Total Bilirubin (0.2-1) mg/dl AST (15-37) U/L ALT (12-78) U/L Alkaline Phosphatase (45-117) U/L Troponin I (0-0.045) ng/ml C-Reactive Protein (0-0.29) mg/dl Total Protein (6.4-8.2) gm/dl Albumin (3.4-5.0) gm/dl Globulin (2.5-4.0) gm/dl Albumin/Globulin Ratio (0.9-2) Procalcitonin (0-0.5) ng/ml COVID-19 Eval Order SARS-CoV-2, RNA, NAAT (NEGATIVE) [place] [address] / Director: Wojciech Chavez M.D. Clinical Laboratory Report Name: ANDRZEJ BARRAZA Acct: [id number] Status: [facility] : 1945 [facility] [place] Date: 07/29/20 Age: 75 Sex: M Dis Date: Loc: Emergency Department Spec: [id number] Collected: 07/29/20-1918 Received: 07/29/[address]: Jh Gordon M.D. Source: Blood OV Order: Ordered: Blood Culture Comments: Comment Default is separate sites, same time Procedure Result Verified Site Blood Culture Aerobic Preliminary 07/30/20-1242 Organism 1 Gram positive cocci clusters Sens Sensitivities Dependent on Further Identification Blood MRSA PCR Performed If viewing in EMR, results available under LAB Serology tab. Blood Culture Anaerobic Preliminary 07/30/20-943 Organism 1 Gram positive cocci clusters Sens Sensitivities Dependent on Further Identification Phoned positive Blood Culture Gram Stain report to SHAUN NUNEZ on 07/30/20 at 0942 [place] [id number]. [place] [id number]. Name: ANDRZEJ BARRAZA : 1945 PAGE 1 Printed: 07/30/201919 END OF REPORT Diagnostic Findings [facility], [phone] XRay Report Patient: ANDRZEJ BARRAZA Date: 07/30/20MR#: [id number]: [address] ID:[id number]: Date: 1945[facility] Zip: [place], [place] [address]Ezd: 75Location: EDSex: MRoom/Bed:Att Phy:Diagnosis: BLOOD INFECTIONPri Phy: Hemal Springer, MDService Date: 07/30/20Fam Phy:Interpreting Phy: Sammy Jones MDAdmit Phy: Ordering Phy: Kaleb Jacob DO cc: ~ XR chest 1V portable HISTORY: SEPSIS COMPARISON: Chest CTA 07/29/2020. FINDINGS: No pneumothorax or no pleural effusions. The heart is borderline enlarged. This remains unchanged. Tortuous thoracic aorta. Poststernotomy changes and left-sided pacemaker/defibrillator again noted. No new focal lung consolidations to suggest pneumonia. No evidence for pulmonary edema. 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 IMPRESSION: No acute process. ACT 112: Negative or not required by law. [facility], [phone] CT Scan Report Patient: ANDRZEJ BARRAZA Date: 07/29/20MR#: [id number]: [address] ID:[id number]: Date: 1945[facility] Zip: [place], [place] [address]Xbj: 75Location: EDSex: MRoom/Bed:Att Phy:Diagnosis: SWEATS,CHILLS,COUGH,WEAKNESSPri Phy: SpringerHemal, MDService Date: 07/29/20Fa Phy:Interpreting Phy: Dov BakerAdmit Phy: Ordering Phy: Jh Gordon M.D. cc: ~ CT angio chest PE protocol CT DOSE: 696.04 mGy.cm HISTORY: 75 years-old Male with PE. Sepsis. Acute shortness of breath TECHNIQUE: Multiple CTA images of the chest were obtained after the intravenous administration of 120 ml Optiray 320. Coronal and sagittal MIPS were obtained from the axial data set and were submitted for review. All measurements were obtained according to NASCET criteria. A dose lowering technique was utilized adhering to the principles of ALARA. COMPARISON: Chest radiograph of same day, CTA chest 01/11/2016. FINDINGS: CTA: Moderate cardiomegaly. Prior median sternotomy with prosthetic aortic valve. Left subclavian pacer. No pericardial effusion. Moderate to extensive coronary artery calcifications. No thoracic aortic aneurysm or dissection. Descending thoracic aortic tortuosity. The pulmonary artery is suboptimally opacified secondary to contrast bolus timing. Main pulmonary artery is dilated, 3.3 cm. The segmental and subsegmental branches are not well evaluated. No pulmonary emboli are identified. Apparent filling defect within a segmental branch of the right lower lobe on image 121 series 4 is favored to be artifactual. CT CHEST: Unremarkable thyroid. No adenopathy. Trace pleural effusions. There is no pneumothorax. Mild bibasilar bronchial wall thickening. Minimal dependent subsegmental bibasilar atelectasis. There are no suspicious pulmonary nodules or masses. No airspace consolidation typical for pneumonia. Minimal linear scarring of the superior segment left lower lobe. Mild layering tracheobronchial secretions. No acute process of the imaged upper abdomen. Unremarkable soft tissues. No acute fracture. Bilateral shoulder total joint arthroplasties. IMPRESSION: 1. Limited exam as above. No pulmonary emboli identified. 2. Cardiomegaly with prior median sternotomy and prosthetic aortic valve 3. Trace pleural effusions with minimal bibasilar atelectasis. 4. Suggested pulmonary artery hypertension. ACT 112: Negative or not required by law. The above report was generated using voice recognition software. It may contain grammatical, syntax or spelling errors. Electronically signed by: Rishi Baker M.D. 07/29/2020 9:20 PM Dictated: 07/29/202112Transcribed: 07/29/202112 [facility], [phone] XRay Report Patient: ANDRZEJ BARRAZA Date: 07/29/20#: [id number]: [address] [facility] ID:[id number]: Date: 1945[facility] Zip: [place], [place] [address]Lca: 75Location: EDSex: MRoom/Bed:Att Phy:Diagnosis: SWEATS,CHILLS,COUGH,WEAKNESSPri Phy: Hemal Springer, MDService Date: 07/29/20Fam Phy:Interpreting Phy: Dov BakerAdmit Phy: Ordering Phy: Jh Gordon M.D. cc: ~ XR chest 1V portable HISTORY: 75 years-old Male SEPSIS acute sepsis COMPARISON: Chest radiographs 11/28/1999 TECHNIQUE: Portable AP view of the chest FINDINGS: Cardiac silhouette is moderately enlarged. Prior median sternotomy. Left subclavian pacer/AICD. No pneumothorax, pleural effusion, airspace consolidation or overt pulmonary edema. Bilateral shoulder arthroplasties. Degenerative changes of the spine. IMPRESSION: No acute process. ACT 112: Negative or not required by law. The above report was generated using voice recognition software. It may contain grammatical, syntax or spelling errors. Electronically signed by: Rishi Baker M.D. 07/29/2020 8:10 PM Dictated: 07/29/202007Transcribed: 07/29/202007 Code Status & VTE Plan Code Status Full VTE Prophylaxis Plan VTE Prophylaxis will be ordered: Yes PG Care Time/CCT Total # of Minutes Spent Total Time Spent with Patient: Total time spent is greater than 50% in coordination of care (as documented) at patient's floor/unit and/or counseling patient: Coding Level of Care Code 89087 Initial Inpt Care Lvl 3 Diagnoses Gram-positive cocci in clusters R68.89 Dyspnea on minimal exertion R06.00 Elevated troponin R77.8 Thrombocytopenia D69.6 Elevated AST (SGOT) R74.01 Bacteremia R78.81 Hyperlipidemia E78.5 Hypertension I10 Coronary artery disease I25.10
[2020-07-31] MEDS: POT PHOSPHATE MONOBASIC W/ SOD TAB PO SCH ×3 (00:09→21:41)
[2020-07-31] MEDS: carvediloL 25 MG TAB PO SCH ×2 (00:09→08:52)
[2020-07-31] MEDS: ATORVASTATIN 40 MG TAB PO SCH (00:09)
[2020-07-31] MEDS: TAMSULOSIN HCL 0.4 MG CAP PO SCH ×2 (00:10→21:41)
[2020-07-31] MEDS: ACETAMINOPHEN 325 MG TAB PO PRN ×2 (02:36→23:44)
--- NOTE | 2020-07-31 06:58 | Ultrasound Report ---
BILIARY ULTRASOUND CLINICAL HISTORY: Abnormal liver function tests COMPARISON STUDY: No previous studies for comparison. FINDINGS: The pancreas was not visualized. No focal hepatic masses were visualized. No gallstones are identifie d. There is no gallbladder wall thickening. There is no evidence of pericholecystic fluid. There is n o ductal dilatation. The common bile duct measured 4 mm. There is no right-sided hydronephrosis. IMPRESSION: 1. Technically limited study 2. Nonvisualization of the pancreas 3. No gallstones identified. No evidence of ductal dilatation ACT 112: Negative or not required by law. Electronically signed by: Dhruv Fitzgerald M.D. 07/31/2020 6:56 AM
[2020-07-31] MEDS: MULTIVITAMIN TAB PO SCH (08:53)
[2020-07-31] MEDS: ASPIRIN 81 MG ECTAB PO SCH (08:53)
[2020-07-31] MEDS: FINASTERIDE 5 MG TAB PO SCH (08:53)
[2020-07-31] MEDS ORDERED: lisinopril 40 MG TAB PO SCH (09:00)
[2020-07-31 09:01] LABS: Hepatitis B Surface Antigen Neg (Neg)
[2020-07-31 09:29] LABS: Hepatitis C IgG 13Yrs+Old_Rflx Neg (Neg)
[2020-07-31 09:44] LABS: Appearance Urine Cloudy (Clear); Bacteria Urine Automated Negative (Negative); Bilirubin Urine Negative (Negative); Blood Urine Negative (Negative); Color Urine Dark Yellow; Epithelial Cell Urine Auto >30 /lpf (0-5); Glucose Urine UA Negative (Negative); Ketones Urine Trace (Negative); Leukocyte Esterase Urine 2+ (Negative); Nitrite Urine Negative (Negative); Protein Urine Trace (Negative); Specific Gravity Urine 1.024 (1.000-1.030); Urobilinogen Urine Negative (Negative); WBC Urine Automated >30 /hpf (0-5)
--- NOTE | 2020-07-31 09:49 | Electrocardiogram Report ---
Test Reason : Blood Pressure : / mmHG Vent. Rate : 060 BPM Atrial Rate : 060 BPM P-R Int : 088 ms QRS Dur : 184 ms QT Int : 520 ms P-R-T Axes : 074 174 024 degrees QTc Int : 520 ms Atrial-sensed ventricular-paced rhythm Biventricular pacemaker detected Abnormal ECG When compared with ECG of 29-JUL-2020 19:33, Vent. rate has decreased BY 10 BPM Confirmed by Eugenio Lloyd ([id number]) on 07/31/2020 9:49:33 AM Referred By: REFERRED SELF Confirmed By:Eugenio Lloyd
[2020-07-31] MEDS: HEPARIN SOD 5,000 UNIT/0.5 ML VIAL SQ SCH ×2 (10:37→21:41)
--- NOTE | 2020-07-31 13:11 | Hospitalist Progress Note ---
Date of Service July 31, 2020 Assessment & Plan (1) Gram-positive cocci in clusters: Blood cultures positive for gram-positive cocci in clusters Day #2 daptomycin 6 mg/kg daily and Rocephin 1000 mg every 12 hours Echo with no evidence of vegetation on valves PICC line placement ordered and consent obtained * Dr. Sanders is aware and at this time we will hold off on PICC line until we have ID and sensitivity of bacteria Hold patient's atorvastatin while on daptomycin Hemodynamically stable (2) Dyspnea on minimal exertion: This is resolved Patient is oxygenating well on room air (3) Elevated troponin: Troponin is trending downward Patient has no chest pain or tightness Unclear significance * Probably related to bacteremia (4) Elevated AST (SGOT): BMI 29 Liver ultrasound is negative ALT and alkaline phosphatase are normal Follow serial labs (5) Bacteremia: Gram-positive cocci in clusters See above (6) Hyperlipidemia: Hold atorvastatin 80 mg for now while on daptomycin Resume on discharge (7) Hypertension: Home meds include * Coreg 25 mg twice daily * Lisinopril 40 mg every morning (8) Coronary artery disease: Currently on aspirin, beta-gianni, MARNIE inhibitor, statin Follows at [facility] Further management as an outpatient Admission and Anticipated Discharge Date Admission Date: July 30, 2020 Subjective Attending: Dr. Douglas Sanders Patient seen and examined at bedside. He continued with fever and rigors overnight. 2 more blood cultures returned positive for gram-positive cocci in clusters. Patient denies any chest pain or tightness. He has no palpitations. He denies any nausea or vomiting. He has no diarrhea. He is somewhat anxious about being in the hospital as he wants to be home with his for [place]. He has no other acute complaints at this time. Review of Systems Review of Systems: All systems reviewed & are unremarkable except as noted in Subjective Physical Exam Physical Exam: GENERAL : No acute distress EYES: No icterus, gaze conjugate NOSE: No evidence of epistaxis MOUTH: No lesions or candidiasis NECK: Supple LUNGS: CTA B/L, no wheezes, rales or rhonchi HEART: Regular, rate controlled ABDOMEN: Soft, NT, ND, BS Present EXTREMITIES: No LE edema, pedal pulses intact NEURO: A&OX3 Results & Data Results & [facility] Vital Signs (Past 12 Hours) Vital Signs Temp Pulse Pulse Resp BP BP Pulse Ox 07/31/20 08:39 36.8 C 81 16 100/63 94 07/31/20 03:22 37.8 C H 07/31/20 02:37 38.2 C H 82 22 103/61 94 07/31/20 01:50 37.0 C Laboratory Results 07/30/20 17:05 07/30/20 17:05 Microbiology 07/30/20 17:29 Aerobic Blood Culture - Preliminary Blood Gram positive cocci clusters Anaerobic Blood Culture - Preliminary Gram positive cocci clusters 07/30/20 17:18 Aerobic Blood Culture - Preliminary Blood Gram positive cocci clusters Anaerobic Blood Culture - Preliminary Gram positive cocci clusters 07/30/20 17:10 Aerobic Blood Culture - Preliminary Blood Gram positive cocci clusters Anaerobic Blood Culture - Preliminary Gram positive cocci clusters 07/30/20 17:05 Aerobic Blood Culture - Preliminary Blood Gram positive cocci clusters Anaerobic Blood Culture - Preliminary Gram positive cocci clusters Diagnostic Findings BILIARY ULTRASOUND CLINICAL HISTORY: Abnormal liver function tests COMPARISON STUDY: No previous studies for comparison. FINDINGS: The pancreas was not visualized. No focal hepatic masses were visualized. No gallstones are identified. There is no gallbladder wall thickening. There is no evidence of pericholecystic fluid. There is no ductal dilatation. The common bile duct measured 4 mm. There is no right-sided hydronephrosis. IMPRESSION: 1. Technically limited study 2. Nonvisualization of the pancreas 3. No gallstones identified. No evidence of ductal dilatation ACT 112: Negative or not required by law. Electronically signed by: Dhruv Fitzgerald M.D. 07/31/2020 6:56 AM PG Care Time/CCT Total # of Minutes Spent Total Time Spent with Patient: Total time spent is greater than 50% in coordination of care (as documented) at patient's floor/unit and/or counseling patient:30 minutes Coding Level of Care Code 17835 Subseq Hosp Care Lvl 2 Diagnoses Gram-positive cocci in clusters R68.89 Dyspnea on minimal exertion R06.00 Elevated troponin R77.8 Elevated AST (SGOT) R74.01 Bacteremia R78.81 Hyperlipidemia E78.5 Hypertension I10 Coronary artery disease I25.10 Time Spent (min) 30
[2020-07-31] MEDS ORDERED: cefTRIAXone SODIUM 2,000 MG in DEXTROSE 5% 50 ML IV SCH (16:00)
[2020-07-31] MEDS ORDERED: DAPTOmycin 575 MG in SYRINGE 0 ML IV SCH (18:00)
[2020-07-31] MEDS ORDERED: SODIUM CHLORIDE 5% (MURO) OP OINT 3.5 GM TUBE OPR SCH (21:00)
[2020-07-31] MEDS: SODIUM CHLORIDE 5% (MURO) OP OINT 3.5 GM TUBE OPR SCH (21:41)
[2020-07-31] MEDS: carvediloL 12.5 MG TAB PO SCH (21:43)
[2020-08-01 05:55] LABS: Hematocrit (blood only) 36.9 % (42-52); Hemoglobin 12.5 g/dL (14.0-18.0); Mean Corpuscular Hemoglobin 31.2 pg (25-34); Mean Corpuscular Hgb Conc 33.9 g/dL (32-36); Mean Platelet Volume 10.4 fL (7.4-10.4); Platelet Count 127 K/uL (130-400); RDW Coefficient of Variation 13.6 % (11.5-14.5); RDW Standard Deviation 45.7 fL (36.4-46.3); Red Blood Count 4.01 M/uL (4.7-6.1); White Blood Count 14.22 K/uL (4.8-10.8)
[2020-08-01 06:13] LABS: Albumin Level 2.7 gm/dl (3.4-5.0); BUN Creatinine Ratio 20.5 (10-20); Calcium 8.3 mg/dl (8.5-10.1); Creatinine Clr Calc Pharmacy 93.3 ml/min; Est GFR (African American) 92.9; Est GFR (Non-African American) 80.1; Magnesium 2.5 mg/dl (1.8-2.4); Potassium 4.1 mmol/L (3.5-5.1)
[2020-08-01 06:15] LABS: Albumin Globulin Ratio 0.8 (0.9-2); Bilirubin,Total 0.4 mg/dl (0.2-1); Globulin 3.4 gm/dl (2.5-4.0); Phosphorus 3.3 mg/dl (2.5-4.9); Total Protein 6.1 gm/dl (6.4-8.2)
[2020-08-01] MEDS: POT PHOSPHATE MONOBASIC W/ SOD TAB PO SCH (08:35)
[2020-08-01] MEDS: lisinopril 20 MG TAB PO SCH (08:35)
[2020-08-01] MEDS: ASPIRIN 81 MG ECTAB PO SCH (08:35)
[2020-08-01] MEDS: MULTIVITAMIN TAB PO SCH (08:35)
[2020-08-01] MEDS: FINASTERIDE 5 MG TAB PO SCH (08:35)
[2020-08-01] MEDS: carvediloL 12.5 MG TAB PO SCH ×2 (08:35→20:29)
[2020-08-01] MEDS: HEPARIN SOD 5,000 UNIT/0.5 ML VIAL SQ SCH ×2 (08:35→20:29)
[2020-08-01] MEDS: NAFCILLIN SODIUM 1,000 MG in DEXTROSE 5% 100 ML IV SCH ×4 (10:31→21:24)
--- NOTE | 2020-08-01 12:38 | Cardiology Consultation ---
Date of Consultation August 01, 2020 Assessment & Plan (1) Bacteremia: -6 blood cultures positive for Staphcoccus lugdunensis. -no obvious valvular vegetation seen on transthoracic echocardiogram. -would suggest long-term antibiotics realizing his valvular heart disease, implantable device, and numerous artificial joints. -would not suggest transesophageal echocardiogram at this time. (2) Aortic valvular disorder: -had a bovine [employer] Warren's aortic prosthesis placed in April 2016. -normal function on current echocardiogram. (3) Mitral valve disorder: -had a mitral valve repair and annuloplasty ring placed in April 2016. -mild mitral stenosis suggested on current echocardiogram. -mild mitral regurgitation also seen. (4) Biventricular ICD (implantable cardioverter-defibrillator) in place: -biventricular ICD placed in August 2016 at the [facility]. -fortunately he has normal left ventricular systolic function. -follows at the [facility]. History of Present Illness Attending Physician: Douglas Sanders MD History of Present Illness Mr. Palumbo is a 75-year-old male admitted on July 30 with fever and positive blood cultures (Gram positive cocci in clusters). This consultation was ordered to determine if a transesophageal echocardiogram is indicated. The patient does carry a significant cardiac history. He had a [employer]. Warren's bovine aortic valve replaced in April 2016 at the [facility]. He also had a mitral valve repair performed at that same time. According to his report, there was no significant coronary artery disease identified on his preoperative cardiac catheterization. He had placement of a biventricular ICD on August 24, 2016 at the [facility] by Dr. Camarena. He continues routine cardiac care at that institution. The patient has never experienced exertional angina pectoris or limiting dyspnea. He further denies syncope, presyncope, PND, orthopnea, palpitations, lower extremity edema, and claudication. Currently, patient is resting comfortably in bed without complaints. Past medical and surgical history 1. Hypertension 2. Left ventricle hypertrophy 3. Hypercholesterolemia 4. [employer] Warren's bovine AVR-April 2016 5. Mitral valve repair-April 2016 6. No significant coronary artery disease-April 2016 7. 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 Left TKR 9. Bilateral TSR right elbow olecranon bursectomy and triceps tendon repair-December 2017 Social history and lives with his No tobacco Social alcohol Family history Noncontributory Review systems A 10 review systems was undertaken and negative except for that described above. Allergies Allergy/AdvReac Type Severity Reaction Status Date / Time adhesive AdvReac Severe rips his Verified 07/30/20 17:25 skin Poison Ann Extract/Poison Allergy Severe RASH--NEEDS Uncoded 07/30/20 17:25 [place] Extra STEROID SHOTS FOR REACTION Home Medications Medication Instructions Recorded Confirmed Type acetaminophen [Tylenol] 650 mg PO QID PRN 07/29/20 07/30/20 History aspirin 81 mg PO DAILY 07/29/20 07/30/20 History atorvastatin 80 mg PO HS 07/29/20 07/30/20 History carvedilol 25 mg PO BID 07/29/20 07/30/20 History doxycycline hyclate 100 mg PO BID 10 Days #20 tab 07/29/20 07/30/20 Rx finasteride 5 mg PO QAM 07/29/20 07/30/20 History lisinopril 40 mg PO QAM 07/29/20 07/30/20 History multivitamin 1 tab PO QAM 07/29/20 07/30/20 History sod phos di, mono-K phos mono 1 tab PO BID #6 tab 07/29/20 07/30/20 Rx [Phospha] tamsulosin 0.8 mg PO QPM 07/29/20 07/30/20 History Saima 128 1 applic OPR HS 07/30/20 07/30/20 History Patient History Medical History Coronary artery disease Hyperlipidemia Hypertension Social History Smoking Status: Former smoker Tobacco Type: Cigarettes Hx Alcohol Use: Yes Alcohol type: wine and hard liquor Hx Substance Use: No Preferred Language: Pashto Communication Ability: Effective Health And Safety Trainer Required: No Beliefs That Will Affect Care: None Current Living Situation: Spouse Other Information That Helps Us Care for You: No Feels Safe at Home: Yes Safety Concerns: Feels Safe At This Time Assistive Devices: None Physical Exam Physical Exam: In general is well-developed well-nourished white male in no acute distress. HEENT exam is negative. Neck is supple with full carotid upstrokes. No carotid bruits. Jugular venous pressure is flat at 90. There is no thyromegaly. Cardiovascular exam reveals a regular rhythm with a 2/6 basal systolic ejection murmur. No S3-S4. Lungs are clear without rales, rhonchi, or wheezes. Chest reveals a palpable device in the left subclavicular region. Abdomen is soft without bruits. Extremities reveal intact radial artery pulses bilaterally. There is no peripheral edema. Results & Data ([facility]) Vital Signs (Past 12 Hours) Vital Signs Temp Pulse Resp BP Pulse Ox 08/01/20 07:48 36.3 C L 62 20 123/82 95 Laboratory Results CBC notes hemoglobin 12.5, hematocrit 36.9, white count 14.2, and platelet count of 809029. Note a sodium of 139, potassium 4.1, chloride 110, bicarb 25, BUN 19, creatinine of 0.94 and a glucose of 122. Troponin I level was 0.499 on presentation with follow-up values of 0.457 and 0.321. AST is mildly elevated at 45. Magnesium level normal at 2.3. Diagnostic Findings Six sets of blood cultures are positive for Staphylococcus lugdunensis. EKG notes atrial sensing and ventricular paced rhythm. Biventricular pacemaker detected. Echocardiogram notes normal left ventricular systolic function with an ejection fraction of 60-65%. There is severe LVH and evidence of a pacing lead in the right ventricle. There was evidence of a mitral valve repair with mild mitral stenosis and mild mitral regurgitation. The study was reviewed personally and there is no evidence of an obvious valvular vegetation. PG Care Time/CCT Total # of Minutes Spent Total Time Spent with Patient: Total time spent is greater than 50% in coordination of care (as documented) at patient's floor/unit and/or counseling patient: Coding Level of Care Code 80163 Initial Inpt Care Lvl 3 Diagnoses Bacteremia R78.81 Aortic valvular disorder I35.9 Mitral valve disorder I05.9 Biventricular ICD (implantable cardioverter-defibrillator) in place Z95.810
--- NOTE | 2020-08-01 13:35 | Hospitalist Progress Note ---
Date of Service August 01, 2020 Assessment & Plan (1) Coag negative Staphylococcus bacteremia: 6 sets of blood cultures growing Staph lugdunensis. Cultures from 07/31 growing now also growing Gram(+) cocci, presumably the same. Internal hardware includes Bi-V pacemaker, bovine aortic prosthesis, mitral valve ring, & left TKA. - Repeat blood culture on 08/02 since most recent now positive. - TTE on 07/31 showed no vegetations on valves or pacemaker wires. - Continue nafcillin - [facility] ID consulted - Pending on Monday - Cardiology consulted - Discussed with Dr. Newton. Given above hardware, considering empiric therapy for endocarditis (ie 6 weeks of abx). For now, clearly continuing IV abx until ID consult is warranted. I think there may be a place for BREE to closely investigate his valves and pacemaker leads, but will await their thoughts. (2) Elevated troponin: Troponin was 0.5, then downtrended. No EKG changes. No indication of acute coronary syndrome. - Medical management - Continue ASA, ACEi, beta-gianni, statin - Lowered BB and ACEi to half home dosing due to lowered blood pressure in the setting of bacteremia. Can adjust/resume home dosing as needed. (3) Hypertension: BP was 90/60 on 07/31, so lowered ACEi & beta-gianni slightly. - BP normal today at 120/80. (4) Thrombocytopenia: Normal platelets in last draw in 2018; closer to 115 on presentation. - Likely from significant illness. No indication of hemolysis. - Monitor (5) Aortic valvular disorder: Aortic and mitral valve repair/replacement at [facility] in 2016. - Noted (6) BPH (benign prostatic hyperplasia): No noted LUTS today. - Continue tamsulosin & finasteride (7) DVT prophylaxis: Heparin 5000 units SQ Q12h Admission and Anticipated Discharge Date Admission Date: July 30, 2020 Subjective Feeling much better compared to admission. No further fevers. Overall, is dismayed by the slight delay in his new antibiotic and having to stay in the hospital, but overall doing well. Physical Exam Constitutional: WD/WN, vitals as above Eyes: EOM intact bilaterally; no conjunctival abnormality ENMT: external ear and nose normal, oropharynx normal Neck: trachea midline, no thyromegaly normal visual inspection Respiratory: normal respiratory effort, lungs clear to auscultation no respiratory distress Cardiovascular: Rate/Rhythm: regular rate and regular rhythm Heart Sounds: normal S1, normal S2 and + murmur (Aortic & mitral systolic ejection murmurs appreciated.) Extremities: no edema Chest (Breasts): Chest: + pacemaker (No pocket warmth, erthyma) Gastrointestinal (Abdomen): Inspection/Auscultation: abdomen normal to inspection and normal bowel sounds; abdomen not distended Percussion/Palpation: + guarding, + abdomen rigid and abdomen soft; abdomen nontender Musculoskeletal: no cyanosis or clubbing, extremities motor strength 5/5 Skin: no rashes, warm and dry no induration (No rashes, red spots, no cellulitis noted.) Neurologic: moves all extremities and awake Psychiatric: Orientation: alert, oriented to person and cooperative Results & Data Results & Data ([facility]) Vital Signs (Past 12 Hours) Vital Signs Temp Pulse Resp BP Pulse Ox 08/01/20 07:48 36.3 C L 62 20 123/82 95 PG Care Time/CCT Total # of Minutes Spent Total Time Spent with Patient: Total time spent is greater than 50% in coordination of care (as documented) at patient's floor/unit and/or counseling patient: Coding Level of Care Code 07802 Subseq Hosp Care Lvl 3 Diagnoses Coag negative Staphylococcus bacteremia R78.81; B95.7 Elevated troponin R77.8 Hypertension I10 Thrombocytopenia D69.6 Aortic valvular disorder I35.9 BPH (benign prostatic hyperplasia) N40.0 DVT prophylaxis Z29.9
[2020-08-01] MEDS: TAMSULOSIN HCL 0.4 MG CAP PO SCH (20:28)
[2020-08-01] MEDS: SODIUM CHLORIDE 5% (MURO) OP OINT 3.5 GM TUBE OPR SCH (20:29)
[2020-08-01] MEDS: ACETAMINOPHEN 325 MG TAB PO PRN (20:47)
[2020-08-02] MEDS: NAFCILLIN SODIUM 1,000 MG in DEXTROSE 5% 100 ML IV SCH ×6 (02:39→22:58)
[2020-08-02 05:27] LABS: Hepatitis A Antibody IgM NON-REACTIVE (NON-REACTIVE); Hepatitis B Core Antibody IgM NON-REACTIVE (NON-REACTIVE)
[2020-08-02 07:19] LABS: Hematocrit (blood only) 36.2 % (42-52); Hemoglobin 12.5 g/dL (14.0-18.0); Mean Corpuscular Hemoglobin 31.5 pg (25-34); Mean Corpuscular Hgb Conc 34.5 g/dL (32-36); Mean Corpuscular Volume 91.2 fL (80-100); Mean Platelet Volume 10.5 fL (7.4-10.4); Platelet Count 157 K/uL (130-400); RDW Coefficient of Variation 13.8 % (11.5-14.5); RDW Standard Deviation 45.9 fL (36.4-46.3); Red Blood Count 3.97 M/uL (4.7-6.1); White Blood Count 10.48 K/uL (4.8-10.8)
[2020-08-02 07:48] LABS: Albumin Level 2.6 gm/dl (3.4-5.0); BUN Creatinine Ratio 20.9 (10-20); Calcium 8.3 mg/dl (8.5-10.1); Creatinine Clr Calc Pharmacy 120.1 ml/min; Est GFR (African American) 106.7; Magnesium 2.3 mg/dl (1.8-2.4); Potassium 4.2 mmol/L (3.5-5.1)
[2020-08-02 07:51] LABS: Albumin Globulin Ratio 0.8 (0.9-2); Bilirubin,Total 0.7 mg/dl (0.2-1); Globulin 3.3 gm/dl (2.5-4.0); Total Protein 5.9 gm/dl (6.4-8.2)
[2020-08-02] MEDS: lisinopril 20 MG TAB PO SCH (08:33)
[2020-08-02] MEDS: ASPIRIN 81 MG ECTAB PO SCH (08:33)
[2020-08-02] MEDS: ADVANCED PROBIOTIC 1250 MG CAPSULE PO SCH (08:33)
[2020-08-02] MEDS: carvediloL 12.5 MG TAB PO SCH ×2 (08:33→20:58)
[2020-08-02] MEDS: HEPARIN SOD 5,000 UNIT/0.5 ML VIAL SQ SCH ×3 (08:33→21:46)
[2020-08-02] MEDS: MULTIVITAMIN TAB PO SCH (08:33)
[2020-08-02] MEDS: FINASTERIDE 5 MG TAB PO SCH (08:33)
--- NOTE | 2020-08-02 13:31 | Hospitalist Progress Note ---
Date of Service August 02, 2020 Assessment & Plan (1) Coag negative Staphylococcus bacteremia: Staph lugdunensis from blood cultures 07/29-07/31. 08/01 blood cultures are early but thus far negative. Rocephin/daptomycin changed to nafcillin IV on 08/01/20. Source? Bi-V pacemaker? AVR? Mitral valve ring? Musculoskeletal/joint? (b/l shoulder and left knee replacements). All 3 joints without signs of inflammation/infection on exam today. Records reviewed - on 06/17/20 did have right knee steroid injection. Could patient have transiently seeded the blood then? The right knee itself has no obvious signs of septic joint today, however. 2D echo without obvious vegetations on valves or pacemaker wires. Plan: * follow 08/01 blood cultures * repeat crp, cbc in am * [facility] ID telemedicine consult tomorrow for additional recommendations; likely 6 weeks minimum abx for persistently + cultures * ?BREE by [facility] cardiology early this week? * no PICC until blood is sterile/negative cultures; I explained this to patient and his today * continue nafcillin * add probiotics * trend creatinine * if a cardiac source for infection is not found consider ortho consult to investigate right knee as source (but again right knee w/o signs/symptoms of infection) (2) Septicemia: see bacteremia above leukocytosis now resolved afebrile platelets normalized AST normalizing recheck crp/cbc am blood cx's 08/01 thus far negative - hopefully will stay negative (3) Elevated troponin: Peak troponin was 0.5. Likely myocardial demand ischemia in setting of septicemia. No evidence of ACS. Continue ASA and coreg. (4) Aortic valvular disorder: Aortic valve replacement (bovine) and mitral valve repair at [facility] in 2016. Good valve function on echo. ?endocarditis despite negative 2D echo? May need BREE. (5) Hypertension: BPs low-normal despite recent adjustments in BP meds. Continue coreg as is. Continue flomax. HOLD lisinopril. Low and low-normal BPs 2nd to septicemia/bacteremia. (6) IV infiltration: Right arm. ELEVATE arm on pillows. Warm packs frequently. Aspirin will help too. Serial exams. (7) Thrombocytopenia: Resolved. Likely 2nd septicemia. Repeat cbc am. (8) BPH (benign prostatic hyperplasia): Continue tamsulosin & finasteride. (9) Elevated AST (SGOT): Nearly resolved. Likely reactive to septicemia. Other LFTs wnl. Repeat in am. u/s liver noted. acute hep profile negative. (10) Biventricular ICD (implantable cardioverter-defibrillator) in place: Noted. Placed at [facility]. Source for bacteremia?? BREE? (11) Hyperlipidemia: Statin on hold due to elevated AST. (12) Diarrhea: At minimum is abx-associated. If it persists - check c diff. Add probiotics. Narrowing of IV abx will help. (13) DVT prophylaxis: Increase heparin to 5000 units SQ Q8h given normal renal function Total time today between bedside rounds, speaking with pt and his , reviewing records, speaking with cardiology, speaking with prior attending physician -- 90 minutes. During the phone call with pt and his I answered all of their questions. Reviewed all problems. Discussed nature of bacteremia, need for sterilization of blood prior to PICC placement, treatment options & goals, plan for ID consult tomorrow. Reviewed labs and down-trending of wbc/ast/etc. Discussed IV infiltration and Rx. Discussed diarrhea. Discussed possible Tx to [facility] if and when necessary - explained I would be happy to do this at any time. Reassured them I had discussed his care multiple times with Dr Newton. Reassured them that my goal for him was to get him well, find the source of the bacteremia, etc. Pt and his seemed satisfied at the conclusion of the visit. Admission and Anticipated Discharge Date Admission Date: July 30, 2020 Subjective First visit with Mr Palumbo today for ongoing bacteremia/septicemia. Patient with multiple complaints during the visit including - Fatigue, diarrhea x 4 episodes since last night, chronic right knee pain ("I need a knee replacement"), right arm discomfort from IV infiltration yesterday, anxiety, and concerns about his overall care at [facility]. About 5 minutes after entering the room the patient called his on his cell phone and she remained on speaker for the remainder of the visit (in total I spent ~60 minutes at bedside). I explained to his I was going to perform a physical exam while she was waiting on the line. Following my exam we had a very lengthy discussion (patient, and his by phone) about his current problems and plan of care. Patient and his noted that he had all of his heart procedures (AVR, MV repair, pacer) at [facility] and they stated they would want him transferred there if necessary for any procedure or any worsening of his status. Of note - blood cx's from 08/01 (evening) thus far negative. No fever since early AM of 07/31. Review of Systems Constitutional: + fatigue and + anorexia (mild); no fever, no chills, no sweats and no body aches Ear, Nose, Mouth, Throat: no sore throat Respiratory: no cough and no dyspnea Cardiovascular: no chest pain Gastrointestinal: + diarrhea/loose stools; no abdominal pain, no nausea and no vomiting Musculoskeletal: + joint pain (right knee - chronic; no shoulder pain b/l, no left knee pain) Integumentary: no rash Psychiatric: + anxiety Physical Exam Constitutional: well developed, well nourished and + ill appearing (but nontoxic ); no acute distress and no altered mental status Eyes: + anicteric sclerae ENMT: external ear and nose normal, oropharynx normal Neck: trachea midline, no thyromegaly Respiratory: normal respiratory effort, lungs clear to auscultation Cardiovascular: Rate/Rhythm: regular rate and regular rhythm Heart Sounds: normal S1, normal S2 and + murmur (2/6 systolic murmur heard best LSB) Vessels: posterior tibial pulses present and dorsalis pedis pulses present; no JVD Extremities: no edema Chest (Breasts): Additional Comments: pacemaker site, left upper chest, clean/dry/intact. no erythema or tenderness. Gastrointestinal (Abdomen): normal bowel sounds, soft, nontender, no hepatosplenomegaly Musculoskeletal: b/l shoulder replacement scars; NO effusion, erythema, or warmth of either shoulder; passive ROM of both shoulders without tenderness. right knee - OA changes with crepitus; NO effusion, erythema, warmth or tenderness right knee. left knee - TKR scar; no effusion, no tenderness, no warmth or erythema. b/l hips - normal ROM and without tenderness. ankles, other small joints wnl. Skin: no rash; minimal stasis changes b/l shins. no open ulcers on feet or hands. no splinter hemorrhages. no janeway lesions. right anterior arm just distal to right elbow - tenderness over vein with surrounding edema/infiltration. 2 areas of ecchymoses in this region from prior blood draws, etc. minimal warmth over infiltrated area. no extension to the antecubital region. Neurologic: moves all extremities; no focal motor deficits Psychiatric: Orientation: alert and oriented x 3 Affect: + anxious affect Lymphatic: no cervical lymphadenopathy Results & Data Results & Data ([facility]) Vital Signs (Past 12 Hours) Vital Signs Temp Pulse Resp BP Pulse Ox 08/02/20 07:42 36.8 C 72 20 123/82 96 Laboratory Results Laboratory Results - last 24 hr 07/31/20 08/02/20 08/02/20 07:29 06:26 06:26 WBC 10.48 RBC 3.97 L Hgb 12.5 L Hct 36.2 L MCV 91.2 MCH 31.5 MCHC 34.5 RDW Std Deviation 45.9 RDW Coeff of Carlitos 13.8 Plt Count 157 MPV 10.5 H Sodium 138 Potassium 4.2 Chloride 107 Carbon Dioxide 24 Anion Gap 8.0 BUN 15 Creatinine 0.73 Est Cr Clr Drug Dosing 120.1 Est GFR ( Amer) 106.7 Est GFR (Non-Af Amer) 92.0 BUN/Creatinine Ratio 20.9 H Glucose 104 H Calcium 8.3 L Magnesium 2.3 Total Bilirubin 0.7 AST 40 H ALT 75 Alkaline Phosphatase 56 Total Protein 5.9 L Albumin 2.6 L Globulin 3.3 Albumin/Globulin Ratio 0.8 L Hepatitis A IgM Ab NON-REACTIVE Hep B Core IgM Ab NON-REACTIVE blood cultures 07/29, 07/30, and 07/31 all + for staph lugdunensis. 08/01 blood cx's thus far negative. urine cx negative. echo w/o obvious vegetations. AST improving. WBC improved. PG Care Time/CCT Total # of Minutes Spent Total Time Spent with Patient: Total time spent is greater than 50% in coordination of care (as documented) at patient's floor/unit and/or counseling patient: Prolonged Care Time Prolonged Care Time: Yes Total Prolonged Care Time: 90 total care time 90 minutes Coding Level of Care Code 57136 Subseq Hosp Care Lvl 3 (25 - SIGNIFICANT, SEPARATELY IDENTIFIABLE ) Diagnoses Coag negative Staphylococcus bacteremia R78.81; B95.7 Septicemia A41.9 Elevated troponin R77.8 Aortic valvular disorder I35.9 Hypertension I10 Hypertension type: essential hypertension IV infiltration T80.1XXD Encounter type: subsequent encounter Thrombocytopenia D69.6 BPH (benign prostatic hyperplasia) N40.0 Lower urinary tract symptom presence: symptoms absent Elevated AST (SGOT) R74.01 Biventricular ICD (implantable cardioverter-defibrillator) in place Z95.810 Hyperlipidemia E78.2 Hyperlipidemia type: mixed hyperlipidemia Diarrhea R19.7 Diarrhea type: unspecified type DVT prophylaxis Z29.9 Additional Codes Prolonged Care Time - Prolonged Care Time: Yes ([id number]) Time Spent (min) 90 (1) BPH (benign prostatic hyperplasia) Lower urinary tract symptom presence: symptoms absent Qualified Code(s): N40.0 - Benign prostatic hyperplasia without lower urinary tract symptoms (2) Hypertension Hypertension type: essential hypertension Qualified Code(s): I10 - Essential (primary) hypertension (3) IV infiltration Encounter type: subsequent encounter Qualified Code(s): T80.1XXD - Vascular complications following infusion, transfusion and therapeutic injection, subsequent encounter (4) Hyperlipidemia Hyperlipidemia type: mixed hyperlipidemia Qualified Code(s): E78.2 - Mixed hyperlipidemia (5) Diarrhea Diarrhea type: unspecified type Qualified Code(s): R19.7 - Diarrhea, unspec ified
[2020-08-02] MEDS ORDERED: ADVANCED PROBIOTIC 1250 MG CAPSULE PO SCH (13:45)
[2020-08-02] MEDS: ACETAMINOPHEN 325 MG TAB PO PRN (18:21)
[2020-08-02] MEDS: TAMSULOSIN HCL 0.4 MG CAP PO SCH (20:58)
[2020-08-02] MEDS: SODIUM CHLORIDE 5% (MURO) OP OINT 3.5 GM TUBE OPR SCH (20:58)
[2020-08-03] MEDS: NAFCILLIN SODIUM 1,000 MG in DEXTROSE 5% 100 ML IV SCH ×5 (02:44→18:45)
[2020-08-03] MEDS: ACETAMINOPHEN 325 MG TAB PO PRN (05:06)
[2020-08-03] MEDS: HEPARIN SOD 5,000 UNIT/0.5 ML VIAL SQ SCH ×3 (06:21→21:28)
[2020-08-03] MEDS: carvediloL 12.5 MG TAB PO SCH ×2 (07:52→21:27)
[2020-08-03] MEDS: ADVANCED PROBIOTIC 1250 MG CAPSULE PO SCH (07:54)
[2020-08-03] MEDS: FINASTERIDE 5 MG TAB PO SCH (07:54)
[2020-08-03] MEDS: MULTIVITAMIN TAB PO SCH (07:54)
[2020-08-03] MEDS: ASPIRIN 81 MG ECTAB PO SCH (07:54)
[2020-08-03 07:59] LABS: Basophils # (auto) 0.02 K/uL (0-0.2); Basophils % (auto) 0.2 %; Eosinophils # (auto) 0.07 K/uL (0-0.5); Eosinophils % (auto) 0.7 %; Hematocrit (blood only) 37.6 % (42-52); Hemoglobin 12.6 g/dL (14.0-18.0); Immature Granulocytes # (auto) 0.03 K/uL (0.00-0.02); Immature Granulocytes % (auto) 0.3 %; Lymphocytes # (auto) 1.23 K/uL (1.2-3.4); Lymphocytes % (auto) 11.8 %; Mean Corpuscular Hgb Conc 33.5 g/dL (32-36); Mean Corpuscular Volume 92.6 fL (80-100); Mean Platelet Volume 10.1 fL (7.4-10.4); Monocytes # (auto) 1.18 K/uL (0.11-0.59); Monocytes % (auto) 11.3 %; Neutrophils # (auto) 7.87 K/uL (1.4-6.5); Neutrophils % (auto) 75.7 %; Platelet Count 182 K/uL (130-400); RDW Coefficient of Variation 13.7 % (11.5-14.5); RDW Standard Deviation 46.6 fL (36.4-46.3); Red Blood Count 4.06 M/uL (4.7-6.1)
[2020-08-03 08:31] LABS: BUN Creatinine Ratio 15.6 (10-20); C Reactive Protein 5.87 mg/dl (0-0.29); Calcium 8.5 mg/dl (8.5-10.1); Creatinine Clr Calc Pharmacy 106.9 ml/min; Est GFR (African American) 101.7; Est GFR (Non-African American) 87.7
[2020-08-03] MEDS: TAMSULOSIN HCL 0.4 MG CAP PO SCH (21:27)
[2020-08-03] MEDS: SODIUM CHLORIDE 5% (MURO) OP OINT 3.5 GM TUBE OPR SCH (21:28)
[2020-08-03] MEDS: ceFAZolin 2000MG 2,000 MG/15 ML SYR IV SCH (22:18)
--- NOTE | 2020-08-03 22:56 | Hospitalist Progress Note ---
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 08/01 blood cultures -- / bottles + for same. Overall clinically improved including labs (normalization of WBC, AST, platelets; improving CRP). Rocephin/daptomycin changed to nafcillin IV on 08/01/20. ID consult today - they recommend changing nafcillin to ancef + gent (synergy) and ultimately rifampin. appreciate consultation. BREE tomorrow by Dr Cueva to check valves, pacer wires, etc. appreciate cardiology support. no PICC until blood is sterile/negative cultures will repeat blood cx's today cont probiotics (2) Septicemia: see bacteremia above (3) Elevated troponin: Peak troponin was 0.5. Likely myocardial demand ischemia in setting of septicemia. No evidence of ACS. Continue ASA and coreg. (4) Aortic valvular disorder: Aortic valve replacement (bovine) and mitral valve repair at [facility] in 2016. Good valve function on echo. BREE in am by Dr Cueva. (5) Hypertension: BPs improved following holding MARNIE. Continue coreg as is. Continue flomax. Low and low-normal BPs 2nd to septicemia/bacteremia. (6) IV infiltration: Right arm. Improving. (7) Thrombocytopenia: Resolved. (8) BPH (benign prostatic hyperplasia): Continue tamsulosin & finasteride. (9) Elevated AST (SGOT): resolved. (10) Biventricular ICD (implantable cardioverter-defibrillator) in place: Noted. Placed at [facility]. Source for bacteremia?? BREE in am. (11) Hyperlipidemia: resume statin ast/alt normal (12) Diarrhea: c diff neg abx-associated cont probiotics (13) DVT prophylaxis: heparin SC extensively updated today by phone NPO after MN for BREE tomorrow improving overall Admission and Anticipated Discharge Date Admission Date: July 30, 2020 Subjective patient states "feeling well" Tm 37.6 yesterday 1 brief episode of chills otherwise feeling good with no SHAFFER, dyspnea, chest pain, abd pain diarrhea better was on speaker phone during the visit Review of Systems Constitutional: no weakness and no anorexia Respiratory: no cough and no dyspnea Gastrointestinal: no abdominal pain Physical Exam Constitutional: well developed and well nourished; no acute distress and no altered mental status ENMT: external ear and nose normal, oropharynx normal Respiratory: normal respiratory effort, lungs clear to auscultation Cardiovascular: Rate/Rhythm: regular rate and regular rhythm Heart Sounds: normal S1, normal S2 and + murmur (1-2/6 RUSB systolic) Vessels: posterior tibial pulses present and dorsalis pedis pulses present; no JVD Extremities: no edema Gastrointestinal (Abdomen): normal bowel sounds, soft, nontender, no hepatosplenomegaly Psychiatric: A+Ox3, euthymic affect Results & Data Results & Data ([facility]) Vital Signs (Past 12 Hours) Vital Signs Temp Pulse Resp BP Pulse Ox 08/03/20 15:26 37.0 C 70 17 134/80 99 Laboratory Results Laboratory Results - last 24 hr 08/03/20 08/03/20 08/03/20 04:44 07:12 07:12 WBC 10.40 RBC 4.06 L Hgb 12.6 L Hct 37.6 L MCV 92.6 MCH 31.0 MCHC 33.5 RDW Std Deviation 46.6 H RDW Coeff of [place] 13.7 Plt Count 182 MPV 10.1 Immature Gran % (Auto) 0.3 Neut % (Auto) 75.7 Lymph % (Auto) 11.8 [place] % (Auto) 11.3 Eos % (Auto) 0.7 Baso % (Auto) 0.2 Neut # (Auto) 7.87 H Lymph # (Auto) 1.23 [place] # (Auto) 1.18 H Eos # (Auto) 0.07 Baso # (Auto) 0.02 Immature Gran # (Auto) 0.03 H Sodium 137 Potassium 4.0 Chloride 106 Carbon Dioxide 24 Anion Gap 6.0 BUN 13 Creatinine 0.82 Est Cr Clr Drug Dosing 106.9 Est GFR ( Amer) 101.7 Est GFR (Non-Af Amer) 87.7 BUN/Creatinine Ratio 15.6 Glucose 116 H Calcium 8.5 AST 35 C-Reactive Protein 5.87 H Stl C. diff Tox B Gene Negative Cdiff Gene blood cx's - 1/4 + from 08/01/20 PG Care Time/CCT Total # of Minutes Spent Total Time Spent with Patient: Total time spent is greater than 50% in coordination of care (as documented) at patient's floor/unit and/or counseling patient: Coding Level of Care Code 37968 Subseq Hosp Care Lvl 3 Diagnoses Coag negative Staphylococcus bacteremia R78.81; B95.7 Septicemia A41.9 Elevated troponin R77.8 Aortic valvular disorder I35.9 Hypertension I10 Hypertension type: essential hypertension IV infiltration T80.1XXD Encounter type: subsequent encounter Thrombocytopenia D69.6 BPH (benign prostatic hyperplasia) N40.0 Lower urinary tract symptom presence: symptoms absent Elevated AST (SGOT) R74.01 Biventricular ICD (implantable cardioverter-defibrillator) in place Z95.810 Hyperlipidemia E78.2 Hyperlipidemia type: mixed hyperlipidemia Diarrhea R19.7 Diarrhea type: unspecified type DVT prophylaxis Z29.9 (1) Hypertension Hypertension type: essential hypertension Qualified Code(s): I10 - Essential (primary) hypertension (2) IV infiltration Encounter type: subsequent encounter Qualified Code(s): T80.1XXD - Vascular complications following infusion, transfusion and therapeutic injection, subsequent encounter (3) BPH (benign prostatic hyperplasia) Lower urinary tract symptom presence: symptoms absent Qualified Code(s): N40.0 - Benign prostatic hyperplasia without lower urinary tract symptoms (4) Hyperlipidemia Hyperlipidemia type: mixed hyperlipidemia Qualified Code(s): E78.2 - Mixed hyperlipidemia (5) Diarrhea Diarrhea type: unspecified type Qualified Code(s): R19.7 - Diarrhea, unspecified
[2020-08-04] MEDS: HEPARIN SOD 5,000 UNIT/0.5 ML VIAL SQ SCH ×3 (05:57→21:05)
[2020-08-04] MEDS ORDERED: GENTAMICIN CONSULT ACTIVE PRN (06:00)
[2020-08-04] MEDS: ceFAZolin 2000MG 2,000 MG/15 ML SYR IV SCH ×3 (06:14→21:05)
[2020-08-04 07:26] LABS: BUN Creatinine Ratio 15.7 (10-20); Calcium 8.3 mg/dl (8.5-10.1); Creatinine Clr Calc Pharmacy 115.3 ml/min; Est GFR (African American) 104.9; Est GFR (Non-African American) 90.5; Potassium 4.1 mmol/L (3.5-5.1)
[2020-08-04] MEDS ORDERED: fentaNYL citrate 100 MCG/2 ML VIAL ONE (07:49)
[2020-08-04] MEDS ORDERED: MIDAZOLAM HCL 5 MG/ML 1 ML VIAL ONE (07:49)
--- NOTE | 2020-08-04 09:12 | Post Anesthesia Assessment ---
Date of Service August 04, 2020 Post Sedation Assessment Vital Signs Temp Pulse Pulse Pulse Resp BP BP 08/04/20 09:00 67 18 120/72 08/04/20 08:45 69 18 121/77 08/04/20 08:41 69 18 119/72 08/04/20 08:40 64 20 111/64 08/04/20 08:35 65 15 110/59 L 08/04/20 08:30 66 17 105/58 L 08/04/20 08:25 65 18 111/60 08/04/20 08:20 63 20 117/64 08/04/20 07:57 70 20 119/79 08/04/20 07:17 37.2 C 73 16 144/71 H 08/03/20 23:10 37.6 C H 70 18 112/71 08/03/20 15:26 37.0 C 70 17 134/80 Pulse Ox 08/04/20 09:00 95 08/04/20 08:45 94 08/04/20 08:41 95 08/04/20 08:40 98 08/04/20 08:35 98 08/04/20 08:30 98 08/04/20 08:25 98 08/04/20 08:20 98 08/04/20 07:57 95 08/04/20 07:17 96 08/03/20 23:10 95 08/03/20 15:26 99 Recovery Score Activity: Moves 4 extremities Respiration: Deep Breath/Cough Circulation: +/-20% PreAnes Value Consciousness: Fully Awake Oxygen Saturation: > 92% On Room Air Post Anesthesia Score: 10 Discharge Sedation Level of Care: Fast Track Phase II Post Sedation Plan On clinical assessment, the patient appears to have tolerated the sedation without complications. Patient is recovering as anticipated. Patient will continue to be monitored by nursing and may be discharged when sedation discharge criteria are met per below protocol. Upon Completions of procedure up to 15 minutes continue every 5 minute vital signs and the P.A.R. score; then discharge to a Phase I or Fast Track to Phase II per the following guidelines: * Discharge Patient to appropriate Phase II area if PAR is 8 or greater or return to pre- procedure baseline. The post - procedure orders will be as directed. * If PAR score is less than 8 or not return to pre-procedure baseline then patient will follow Phase I monitoring till PAR is reached for Phase II. The Phase I may be done in procedure room or may call to secure a Phase I area. * If naloxone or flumazenil are used for reversal, hold in Phase I for continued monitoring from when last reversal dose was given for a minimum of 60 minutes or longer pending the nurse and/or physician discretion of patient condition before discharge to Phase II. Please call the Sedation Physician to re-evaluate and complete post-note for discharge to Phase II area. Do NOT discharge from procedure sedation or Phase 1 until post- sedation evaluation note is complete by procedure /sedation MD Sedation Discharge Instructions to be given to the patient at discharge to home.
--- NOTE | 2020-08-04 09:21 | Pharmacy Report ---
Pharmacy Abx Initial Consult - Date of Service August 04, 2020 - Pharmacy Dosing Scope Date of Consult: 08/04 Consultation requested by: Dr. Garcia Pharmacy is consulted to initiate gentamicin dosing therapy, order appropriate labs and adjust drug dose/frequency. - Subjective The patient is a 75 year old M admitted on 07/30/20 21:08. - Objective Height: 6 ft 4 in Weight: 105.3 kg Vital Signs (Past 12hrs): Vital Signs Temp Pulse Pulse Pulse Resp BP BP 08/04/20 09:00 67 18 120/72 08/04/20 08:45 69 18 121/77 08/04/20 08:41 69 18 119/72 08/04/20 08:40 64 20 111/64 08/04/20 08:35 65 15 110/59 L 08/04/20 08:30 66 17 105/58 L 08/04/20 08:25 65 18 111/60 08/04/20 08:20 63 20 117/64 08/04/20 07:57 70 20 119/79 08/04/20 07:17 37.2 C 73 16 144/71 H 08/03/20 23:10 37.6 C H 70 18 112/71 Pulse Ox 08/04/20 09:00 95 08/04/20 08:45 94 08/04/20 08:41 95 08/04/20 08:40 98 08/04/20 08:35 98 08/04/20 08:30 98 08/04/20 08:25 98 08/04/20 08:20 98 08/04/20 07:57 95 08/04/20 07:17 96 08/03/20 23:10 95 Lab Results (24hrs): Laboratory Tests (24 Hours) 08/04/20 06:05 Creatinine 0.76 Est Cr Clr Drug Dosing 115.3 Micro Results: 08/03/20 14:15 Aerobic Blood Culture - Pending Blood Anaerobic Blood Culture - Pending 08/03/20 14:20 Aerobic Blood Culture - Pending Blood Anaerobic Blood Culture - Pending 07/31/20 Unknown Urine Culture - Final Urine,Clean Catch No growth - less than 1,000 colonies/mL. 07/30/20 17:05 Aerobic Blood Culture - Final Blood Staphylococcus lugdunensis Anaerobic Blood Culture - Final Staphylococcus lugdunensis 12/24/20 17:29 Aerobic Blood Culture - Final Blood Staphylococcus lugdunensis Anaerobic Blood Culture - Final Staphylococcus lugdunensis 07/30/20 17:18 Aerobic Blood Culture - Final Blood Staphylococcus lugdunensis Anaerobic Blood Culture - Final Staphylococcus lugdunensis 07/30/20 17:10 Aerobic Blood Culture - Final Blood Staphylococcus lugdunensis Anaerobic Blood Culture - Final Staphylococcus lugdunensis - Assessment & Plan Assessment 75 year old male with recurrent bacteremia. Initially on nafcillin, then changed to gentamicin and ancef per ID recommendations. Repeat blood cultures 08/03 pending. BREE ordered for today to rule out endocarditis Plan Gentamicin: * Started gentamicin 80 mg iv q 8 hr (~1 mg/kg adjusted body weight d/t adjusted bw >/= 1.2 x IBW) * Gm positive synergy dosing recommends gentamicin 1 mg/kg - initial frequency Q8h selected d/t Crcl >60 * Plan to obtain a trough level prior to the 3rd dose to rule out accumulation of drug and potential for toxicity. Goal trough is to maintain level <1 mcg/ml * Target peak concentration 3-5 mcg/ml, will plan to obtain after 3rd dose to determine if dose appropriate. Pharmacy will continue to follow and will adjust dose/frequency as necessary. Thank you.
[2020-08-04] MEDS: GENTAMICIN SULFATE 80 MG in DEXTROSE 5% 100 ML IV SCH ×2 (10:49→18:06)
[2020-08-04] MEDS: carvediloL 12.5 MG TAB PO SCH ×2 (10:53→20:21)
[2020-08-04] MEDS: FINASTERIDE 5 MG TAB PO SCH (10:53)
[2020-08-04] MEDS: MULTIVITAMIN TAB PO SCH (10:54)
[2020-08-04] MEDS: ADVANCED PROBIOTIC 1250 MG CAPSULE PO SCH (10:54)
[2020-08-04] MEDS: ASPIRIN 81 MG ECTAB PO SCH (10:54)
--- NOTE | 2020-08-04 17:06 | XCELERA ---
[id number]
[2020-08-04] MEDS ORDERED: OPTIRAY 320 125ml IV ONE (17:45)
--- NOTE | 2020-08-04 18:19 | CT Scan Report ---
CT angio chest w con CT DOSE: 691.45 mGy.cm CLINICAL HISTORY: evaluate for aortic root abcess bacteremia, abnormal echocardiography. TECHNIQUE: CT angiographic images were obtained in a dynamic helical fashion during intravenous admin istration of 120 cc of Optiray 320. MIP images were acquired. A dose lowering technique was utilized adhering to the principles of ALARA1. COMPARISON STUDY: 07/29/2020 FINDINGS: No thyroid masses are visualized. There is mild ectasia of the ascending thoracic aorta which measures 38 mm. There is aortic valve pro sthesis. There is a mitral valve prosthesis. There is trace fluid adjacent to the aortic root. Evalua tion is somewhat limited given streak artifact from epicardial electrodes, aortic graft, and pacemake r electrodes. There is hypoechoic soft tissue at the level of the aortic valve. This may represent th ickening of the biologic graft leaflets. Correlation with echocardiographic findings to exclude leafl et vegetation is recommended.. There are no pulmonary artery filling defects to indicate acute pulmonary embolism. There is no pathologic adenopathy. There is a trace right pleural effusion. There are mild dependent atelectatic changes. There are no a reas of parenchymal consolidation to indicate pneumonia. There are bilateral shoulder arthroplasties. IMPRESSION: 1. Hypoechoic soft tissue at the level of the aortic valve. This may represent mild thickening of the biologic graft leaflets. Correlation with echocardiographic findings is recommended to exclude leafl et vegetation 2. Trace fluid adjacent to the aortic root. This is not viewed as particularly suspicious for aortic root abscess. 3. No evidence of focal pulmonary consolidation 4. No evidence of pathologic adenopathy ACT 112: Negative or not required by law. Electronically signed by: Dhruv Fitzgerald M.D. 08/04/2020 6:18 PM
[2020-08-04] MEDS: SODIUM CHLORIDE 5% (MURO) OP OINT 3.5 GM TUBE OPR SCH (20:21)
[2020-08-04] MEDS: ATORVASTATIN 40 MG TAB PO SCH (20:21)
[2020-08-04] MEDS: TAMSULOSIN HCL 0.4 MG CAP PO SCH (20:21)
[2020-08-04] MEDS: ACETAMINOPHEN 325 MG TAB PO PRN (21:05)
--- NOTE | 2020-08-04 23:31 | Hospitalist Progress Note ---
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 08/01 blood cultures -- 1/ bottles + for same. 08/03 cultures thus far negative. Rocephin/daptomycin changed to nafcillin IV on 08/01/20. 08/03 [facility] ID consult - they recommend changing nafcillin to ancef + gent (synergy) and ultimately rifampin. Ancef started 08/03. Gent started 08/04. Pharmacy to follow P/Ts. appreciate consultation. BREE findings reviewed w/ Dr Cueva - no obvious vegetation on pacer wires. No obvious vegetation on MV. ?small perivalvular abscess on AV/aortic root? radiology advised CTA chest. this was done, and no obvious AV or aortic root abscess seen. no PICC until blood is sterile/negative cultures from 08/03. given the BREE/CT findings hopefully pacer/ICD does not need removal. plan: 6 weeks of IV abx followed by possible lifelong suppressive oral abx. rifampin - add 08/09/2020 or later per ID from [facility] lastly - no obvious b/l shoulder or b/l knee infection clinically on exam (has hardware in both shoulders & left knee) (2) Septicemia: see bacteremia above WBC, crp, platelets all improved or improving fever curve resolving 08/01 cultures only / + 08/03 cultures thus far negative (3) Elevated troponin: Peak troponin was 0.5. Likely myocardial demand ischemia in setting of septicemia. No evidence of ACS. Continue ASA and coreg. (4) Aortic valvular disorder: Aortic valve replacement (bovine) and mitral valve repair at [facility] in 2016. Good valve function on echo (2D and BREE). BREE findings reviewed with Dr Cueva No obvious large vegetation on AV leaflets themselves there was ? perivalvular abscess on BREE but CTA chest did not substantiate this appreciate Dr Cueva's assistance (5) Hypertension: BPs cont to be low-normal Continue coreg but lower again to 6.25mg BID Continue flomax. Continue to hold MARNIE inh Low and low-normal BPs 2nd to septicemia/bacteremia. (6) IV infiltration: Right arm. Improving. Small amount of palpable firmness in the vessel itself but if phlebitis is present it is quite minimal aspirin prn cont to elevate cont to provide warmpacks overall appearance MUCH better relative to the weekend (7) Thrombocytopenia: Resolved. (8) BPH (benign prostatic hyperplasia): Continue tamsulosin & finasteride. (9) Elevated AST (SGOT): resolved. (10) Biventricular ICD (implantable cardioverter-defibrillator) in place: Noted. Placed at [facility]. Source for bacteremia?? no obvious vegetations on device wires on BREE today. for now device to remain - no obvious urgent need to explant the device. (11) Hyperlipidemia: resume statin as ast/alt now normal (12) Diarrhea: c diff neg abx-associated cont probiotics improved (13) DVT prophylaxis: heparin SC extensively updated this evening by phone questions answered care plan discussed he is improving nicely hopefully 08/03 cultures remain negative so PICC line can be placed Admission and Anticipated Discharge Date Admission Date: July 30, 2020 Subjective patient states he's feeling good "for the last 3 days" denies dyspnea on exertion, cp, dyspnea at rest or abdominal pain eating well no fevers/chills ambulating to bathroom anxious about BREE findings today and CTA chest findings blood cx's from 08/03 noted to be thus far negative pt called during my visit questions answered explained that if 08/03 cultures remain negative then PICC line can ultimately be placed spoke with Dr Cueva 4x's today re: BREE and CTA results along w/ care plan Review of Systems Constitutional: + fatigue; no fever, no chills, no body aches, no weakness and no anorexia Respiratory: no cough and no dyspnea Cardiovascular: no chest pain and no edema Gastrointestinal: no abdominal pain and no diarrhea/loose stools Physical Exam Constitutional: well developed and well nourished; no altered mental status towards end of visit patient reported urinary urgency, started shaking, and ?was hyperventilating -- he blamed latter on the urinary urgency; pt got up from bed after my exam to go to bathroom Eyes: + anicteric sclerae ENMT: external ear and nose normal, oropharynx normal Respiratory: normal respiratory effort, lungs clear to auscultation Cardiovascular: Rate/Rhythm: regular rate and regular rhythm Heart Sounds: normal S1, normal S2 and + murmur (1-2/6 RUSB systolic) Vessels: posterior tibial pulses present and dorsalis pedis pulses present; no JVD Extremities: no edema Gastrointestinal (Abdomen): normal bowel sounds, soft, nontender, no hepatosplenomegaly Skin: right forearm; resolving IV infiltration (less swelling, less ecchymoses); about 2.5cm of venous cord/hardening in vesssel distal to elbow; not hot or warm or tender Psychiatric: Orientation: alert and oriented x 3 Affect: + anxious affect Results & Data Results & Data ([facility]) Vital Signs (Past 12 Hours) Vital Signs Temp Pulse Resp BP Pulse Ox 08/04/20 23:22 36.9 C 74 16 99/64 L 97 08/04/20 15:00 36.9 C 60 16 103/67 96 Laboratory Results Laboratory Results - last 24 hr 08/04/20 06:05 Sodium 136 Potassium 4.1 Chloride 106 Carbon Dioxide 25 Anion Gap 5.0 BUN 12 Creatinine 0.76 Est Cr Clr Drug Dosing 115.3 Est GFR ( Amer) 104.9 Est GFR (Non-Af Amer) 90.5 BUN/Creatinine Ratio 15.7 Glucose 98 Calcium 8.3 L blood cx's 08/03 thus far neg blood cx's 08/01 08/10 bottles + staph BREE findings reviewed with Dr Cueva CTA chest findings reviewed PG Care Time/CCT Total # of Minutes Spent Total Time Spent with Patient: Total time spent is greater than 50% in coordination of care (as documented) at patient's floor/unit and/or counseling patient: Coding Level of Care Code 77534 Subseq Hosp Care Lvl 3 Diagnoses Coag negative Staphylococcus bacteremia R78.81; B95.7 Septicemia A41.9 Elevated troponin R77.8 Aortic valvular disorder I35.9 Hypertension I10 Hypertension type: essential hypertension IV infiltration T80.1XXD Encounter type: subsequent encounter Thrombocytopenia D69.6 BPH (benign prostatic hyperplasia) N40.0 Lower urinary tract symptom presence: symptoms absent Elevated AST (SGOT) R74.01 Biventricular ICD (implantable cardioverter-defibrillator) in place Z95.810 Hyperlipidemia E78.2 Hyperlipidemia type: mixed hyperlipidemia Diarrhea R19.7 Diarrhea type: unspecified type DVT prophylaxis Z29.9 (1) BPH (benign prostatic hyperplasia) Lower urinary tract symptom presence: symptoms absent Qualified Code(s): N40.0 - Benign prostatic hyperplasia without lower urinary tract symptoms (2) Diarrhea Diarrhea type: unspecified type Qualified Code(s): R19.7 - Diarrhea, unspecified (3) Hyperlipidemia Hyperlipidemia type: mixed hyperlipidemia Qualified Code(s): E78.2 - Mixed hyperlipidemia (4) IV infiltration Encounter type: subsequent encounter Qualified Code(s): T80.1XXD - Vascular complications following infusion, transfusion and therapeutic injection, subsequent encounter (5) Hypertension Hypertension type: essential hypertension Qualified Code(s): I10 - Essential (primary) hypertension
[2020-08-04] MEDS ORDERED: ASPIRIN 325 MG ECTAB PO PRN (23:33)
[2020-08-05] MEDS ORDERED: GENTAMICIN TROUGH ONE (00:30)
[2020-08-05] MEDS: GENTAMICIN SULFATE 80 MG in DEXTROSE 5% 100 ML IV SCH (01:09)
[2020-08-05] MEDS ORDERED: GENTAMICIN PEAK ONE (03:00)
[2020-08-05 03:32] LABS: BUN Creatinine Ratio 13.9 (10-20); Calcium 8.2 mg/dl (8.5-10.1); Creatinine Clr Calc Pharmacy 116.9 ml/min; Est GFR (African American) 105.5; Potassium 4.2 mmol/L (3.5-5.1)
[2020-08-05] MEDS: ceFAZolin 2000MG 2,000 MG/15 ML SYR IV SCH ×3 (06:06→21:31)
[2020-08-05] MEDS: HEPARIN SOD 5,000 UNIT/0.5 ML VIAL SQ SCH ×2 (06:07→14:05)
--- NOTE | 2020-08-05 09:09 | Pharmacy Report ---
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 Planning to add rifampin for further synergy on or after 08/09/2020. * Plan is for 6 weeks of abx after BREE/Chest CTA could not rule out IE. Repeat blood cultures from 08/03 show no growth to date but are not yet finalized. * Renal function is stable and patient is afebrile. Plan Gentamicin * Patient was started on 80 mg IV every 8 hours per [facility] ID recommendation * Peak level was drawn appropriately and was 2.8 mcg/mL. This is below the desired goal range of 3 - 4 mcg/mL for gram positive synergy * Trough level was drawn appropriately and was 1.10 mcg/mL. This is supratherapeutic; however, I am attributing this to the first two doses being administer > 1 hour after they were scheduled to be administered which could have led to an artificially high trough. * Change to 90 mg IV every 8 hours given that peak was below the goal range * Goal peak level for gram positive synergy: 3 to 4 mcg/mL * Goal trough level for gram positive synergy: < 1 mcg/mL * It is not routinely recommended to monitor peaks for gram positive synergy. However, given that patient's first peak was below goal range I have ordered another peak for tomorrow morning. I have also ordered a trough for tomorrow as well. Pharmacy will continue to follow and will adjust dose/frequency as necessary. Thank you.
[2020-08-05] MEDS: carvediloL 6.25 MG TAB PO SCH ×2 (10:15→20:29)
[2020-08-05] MEDS: ASPIRIN 81 MG ECTAB PO SCH (10:16)
[2020-08-05] MEDS: MULTIVITAMIN TAB PO SCH (10:16)
[2020-08-05] MEDS: ADVANCED PROBIOTIC 1250 MG CAPSULE PO SCH (10:17)
[2020-08-05] MEDS: FINASTERIDE 5 MG TAB PO SCH (10:18)
[2020-08-05] MEDS: GENTAMICIN SULFATE IV SCH ×2 (10:19→17:26)
[2020-08-05] MEDS: DEXTROSE 5% IV SCH ×2 (10:19→17:26)
[2020-08-05] MEDS: ACETAMINOPHEN 325 MG TAB PO PRN ×2 (10:20→16:20)
[2020-08-05] MEDS ORDERED: MoRPHine SULFATE 2 MG/ML CARP IV STA (16:35)
[2020-08-05] MEDS ORDERED: LACTATED RINGER'S 1,000 ML IV SCH (16:45)
[2020-08-05] MEDS: ATORVASTATIN 40 MG TAB PO SCH (20:29)
[2020-08-05] MEDS: TAMSULOSIN HCL 0.4 MG CAP PO SCH (20:29)
[2020-08-05] MEDS: SODIUM CHLORIDE 5% (MURO) OP OINT 3.5 GM TUBE OPR SCH (20:30)
[2020-08-05] MEDS ORDERED: LIDOCAINE 5% 1 PATCH TD SCH (21:00)
--- NOTE | 2020-08-05 22:48 | Hospitalist Progress Note ---
Date of Service August 05, 2020 Assessment & Plan (1) Coag negative Staphylococcus bacteremia: Staph lugdunensis from blood cultures 07/29-07/31. 08/01 blood cultures -- 1/ bottles + for same. 08/03 cultures thus far negative. Rocephin/daptomycin changed to nafcillin IV on 08/01/20. 08/03 [facility] consult - they recommend changing nafcillin to ancef + gent (synergy) and ultimately rifampin. Ancef started 08/03. Gent started 08/04. Pharmacy to follow P/Ts. appreciate consultation. BREE findings reviewed w/ Dr Cueva - no obvious vegetation on pacer wires. No obvious vegetation on MV. ?small perivalvular abscess on AV/aortic root? radiology advised CTA chest. this was done, and no obvious AV or aortic root abscess seen. no PICC until blood is sterile/negative cultures from 08/03. given the BREE/CT findings hopefully pacer/ICD does not need removal. plan: 6 weeks of IV abx followed by possible lifelong suppressive oral abx. rifampin - add 08/09/2020 or later per ID from [facility] lastly - no obvious b/l shoulder or b/l knee infection clinically on exam (has hardware in both shoulders & left knee) Awaiting blood cultures to be negative at least 72 hours. Would prefer that culture is finalized, however, family and patient is pushing for discharge. (2) Septicemia: see bacteremia above WBC, crp, platelets all improved or improving fever curve resolving 08/01 cultures only / + 08/03 cultures thus far negative (3) Elevated troponin: Peak troponin was 0.5. Likely myocardial demand ischemia in setting of septicemia. No evidence of ACS. Continue ASA and coreg. (4) Aortic valvular disorder: Aortic valve replacement (bovine) and mitral valve repair at [facility] in 2016. Good valve function on echo (2D and BREE). BREE findings reviewed with Dr Cueva No obvious large vegetation on AV leaflets themselves there was ? perivalvular abscess on BREE but CTA chest did not substantiate this appreciate Dr Cueva's assistance (5) Hypertension: BPs cont to be low-normal Continue coreg but lower again to 6.25mg BID Continue flomax. Continue to hold MARNIE inh Low and low-normal BPs 2nd to septicemia/bacteremia. (6) IV infiltration: Right arm. Improving. Small amount of palpable firmness in the vessel itself but if phlebitis is present it is quite minimal aspirin prn cont to elevate cont to provide warmpacks overall appearance MUCH better relative to the weekend (7) Thrombocytopenia: Resolved. (8) BPH (benign prostatic hyperplasia): Continue tamsulosin & finasteride. (9) Elevated AST (SGOT): resolved. (10) Biventricular ICD (implantable cardioverter-defibrillator) in place: Noted. Placed at [facility]. Source for bacteremia?? no obvious vegetations on device wires on BREE today. for now device to remain - no obvious urgent need to explant the device. (11) Hyperlipidemia: resume statin as ast/alt now normal (12) Diarrhea: c diff neg abx-associated cont probiotics improved (13) DVT prophylaxis: heparin SC extensively updated this evening by phone questions answered care plan discussed he is improving nicely hopefully on 08/06 cultures remain negative so PICC line can be placed (14) Abdominal pain: Pain is improving. Unsure as to specific cause, however his abdominal exam is benign. will monitor his pain and signed out to evening hospitalist. If pain contiues will consider a ct scan of abdomen and pelvis. will hold heparin. Admission and Anticipated Discharge Date Admission Date: July 30, 2020 Subjective 75 yo male reports having right sided abdominal pain. He reports this occurred after having a heparin shot today. He states the pain radiates to his right testicle. Updated on phone. Patient would like to hold off any further imaging as his pain is improving by time I am seeing him. Review of Systems Review of Systems: All systems reviewed & are unremarkable except as noted in HPI & below Physical Exam Physical Exam: Constitutional: well developed and well nourished; no altered mental status Eyes: + anicteric sclerae ENMT: external ear and nose normal, oropharynx normal Respiratory: normal respiratory effort, lungs clear to auscultation Cardiovascular: Rate/Rhythm: regular rate and regular rhythm Heart Sounds: normal S1, normal S2 and + murmur (1-2/6 RUSB systolic) Vessels: posterior tibial pulses present and dorsalis pedis pulses present; no JVD Extremities: no edema Gastrointestinal (Abdomen): normal bowel sounds, soft, nontender to deep palpation (unable to elicit pain), no hepatosplenomegaly Skin: right forearm; resolving IV infiltration (less swelling, less ecchymoses); about 2.5cm of venous cord/hardening in vesssel distal to elbow; not hot or warm or tender Psychiatric: Orientation: alert and oriented x 3 Affect: + anxious affect Results & Data Results & Data ([facility]) Vital Signs (Past 12 Hours) Vital Signs Temp Pulse Resp BP Pulse Ox 08/05/20 15:32 36.7 C 57 L 18 149/88 H 94 PG Care Time/CCT Total # of Minutes Spent Total Time Spent with Patient: Total time spent is greater than 50% in coordination of care (as documented) at patient's floor/unit and/or counseling patient: Coding Level of Care Code 37321 Subseq Hosp Care Lvl 3 Diagnoses Coag negative Staphylococcus bacteremia R78.81; B95.7 Septicemia A41.9 Elevated troponin R77.8 Aortic valvular disorder I35.9 Hypertension I10 Hypertension type: essential hypertension IV infiltration T80.1XXD Encounter type: subsequent encounter Thrombocytopenia D69.6 BPH (benign prostatic hyperplasia) N40.0 Lower urinary tract symptom presence: symptoms absent Elevated AST (SGOT) R74.01 Biventricular ICD (implantable cardioverter-defibrillator) in place Z95.810 Hyperlipidemia E78.2 Hyperlipidemia type: mixed hyperlipidemia Diarrhea R19.7 Diarrhea type: unspecified type DVT prophylaxis Z29.9 Abdominal pain R10.9 Time Spent (min) 35 (1) BPH (benign prostatic hyperplasia) Lower urinary tract symptom presence: symptoms absent Qualified Code(s): N40.0 - Benign prostatic hyperplasia without lower urinary tract symptoms (2) Diarrhea Diarrhea type: unspecified type Qualified Code(s): R19.7 - Diarrhea, unspecified (3) Hyperlipidemia Hyperlipidemia type: mixed hyperlipidemia Qualified Code(s): E78.2 - Mixed hyperlipidemia (4) IV infiltration Encounter type: subsequent encounter Qualified Code(s): T80.1XXD - Vascular complications following infusion, transfusion and therapeutic injection, subsequent encounter (5) Hypertension Hypertension type: essential hypertension Qualified Code(s): I10 - Essential (primary) hypertension
[2020-08-06] MEDS: DEXTROSE 5% IV SCH ×2 (01:30→10:51)
[2020-08-06] MEDS: GENTAMICIN SULFATE IV SCH ×2 (01:30→10:51)
[2020-08-06] MEDS: ceFAZolin 2000MG 2,000 MG/15 ML SYR IV SCH ×2 (05:45→13:32)
[2020-08-06] MEDS: ACETAMINOPHEN 325 MG TAB PO PRN ×2 (06:23→13:04)
[2020-08-06 07:31] VITALS: TEMP 99.1
[2020-08-06] MEDS ORDERED: GENTAMICIN TROUGH SCH (08:30)
[2020-08-06] MEDS: carvediloL 6.25 MG TAB PO SCH (08:49)
[2020-08-06 08:50] LABS: Hematocrit (blood only) 36.4 % (42-52); Hemoglobin 12.4 g/dL (14.0-18.0); Mean Corpuscular Hemoglobin 31.4 pg (25-34); Mean Corpuscular Hgb Conc 34.1 g/dL (32-36); Mean Corpuscular Volume 92.2 fL (80-100); Mean Platelet Volume 9.3 fL (7.4-10.4); Platelet Count 233 K/uL (130-400); RDW Coefficient of Variation 13.3 % (11.5-14.5); RDW Standard Deviation 44.9 fL (36.4-46.3); Red Blood Count 3.95 M/uL (4.7-6.1); White Blood Count 16.98 K/uL (4.8-10.8)
[2020-08-06] MEDS: ASPIRIN 81 MG ECTAB PO SCH (08:50)
[2020-08-06] MEDS: MULTIVITAMIN TAB PO SCH (08:51)
[2020-08-06] MEDS: ADVANCED PROBIOTIC 1250 MG CAPSULE PO SCH (08:51)
[2020-08-06] MEDS: FINASTERIDE 5 MG TAB PO SCH (08:52)
[2020-08-06 09:26] LABS: Creatinine Clr Calc Pharmacy 70.7 ml/min; Est GFR (African American) 66.4; Est GFR (Non-African American) 57.3
--- NOTE | 2020-08-06 10:09 | Pharmacy Report ---
Pharmacy Abx Dose Short Note - Date of Service August 06, 2020 - Assessment & Plan Assessment 75 year old M receiving gentamicin for treatment of synergy in the setting of bacteremia Day # 3 of antimicrobial therapy. Plan Gentamicin * Trough level of 2.1 mcg/mL is supratherapeutic - dose held and peak not obtained. * Change to 90 mg IV every 12 hours (patient specific pharmacokinetics suggest half-life of 3.7 hours (slightly prolonged as typical clearance around 2 hours) and elimination constant of 0.187 hr) with dose starting 4 hours late to allow for trough to fall below 1 mcg/mL * Goal trough level for synergy : <1 mcg/mL and goal peak level for synergy: 3-4 mcg/mL * Patient's kidney function has increased from serum creatinine of 0.75 to 1.25 mg/dL. Will hold off on ordering additional levels until creatinine can be obtained tomorrow. Expect that levels could be obtained around 1400 dose. Pharmacy will continue to follow and will adjust dose/frequency as necessary. Thank you.
[2020-08-06 10:49] LABS: Basophils # (auto) 0.02 K/uL (0-0.2); Basophils % (auto) 0.1 %; Eosinophils # (auto) 0.01 K/uL (0-0.5); Eosinophils % (auto) 0.1 %; Immature Granulocytes # (auto) 0.05 K/uL (0.00-0.02); Immature Granulocytes % (auto) 0.3 %; Lymphocytes # (auto) 0.86 K/uL (1.2-3.4); Lymphocytes % (auto) 5.3 %; Monocytes # (auto) 1.59 K/uL (0.11-0.59); Monocytes % (auto) 9.8 %; Neutrophils # (auto) 13.73 K/uL (1.4-6.5); Neutrophils % (auto) 84.4 %
[2020-08-06] MEDS ORDERED: GENTAMICIN PEAK SCH (11:00)
[2020-08-06 11:25] LABS: BUN Creatinine Ratio 11.9 (10-20); Calcium 8.6 mg/dl (8.5-10.1); Creatinine Clr Calc Pharmacy 61.7 ml/min; Est GFR (African American) 56.4; Est GFR (Non-African American) 48.7
[2020-08-06] MEDS ORDERED: GENTAMICIN SULFATE IV SCH (14:00)
[2020-08-06] MEDS ORDERED: DEXTROSE 5% IV SCH (14:00)
[2020-08-06 15:12] VITALS: O2SAT 93
[2020-08-06] MEDS ORDERED: LACTATED RINGER'S 1,000 ML IV SCH (17:15)
--- NOTE | 2020-08-06 17:16 | Discharge Summary ---
Date of Service August 06, 2020 Admission HPI Per Admitting Provider Patient is a 75-year-old male who presents after being called back from the emergency department after having 2 out of 2 blood cultures be positive for gram-positive cocci in clusters. Past medical history includes coronary artery disease status post PCI with status post mitral valve repair and aortic valve replacement done at the [facility]. He subsequently had an AICD/pacemaker placed, this occurred in 2016. He presented yesterday with worsening cough, congestion, suppose it subjective fevers, body aches and weakness that had evolved since Monday. His family was concerned of COVID-19. He denied any known COVID-19 exposures. During history today the patient denied reported fevers, documented that he was febrile to 40.4 in the emergency department. Yesterday he was found to have a white count within normal limits, mild anemia at 13.9 and 40 with mild thrombocytopenia and 113. His AST was 77, initial troponin was 0.49 with a delta of 0.45 which is essentially unchanged, the patient's brain natruretic peptide was mildly elevated at 3400, procalcitonin was 0.51. Additional studies were performed and ultimately the patient decided to leave AGAINST MEDICAL ADVICE. He returns today after being contacted again for positive blood cultures. Patient's white count is mildly elevated to 14.24 this is a change from yesterday of note he did receive steroids while in the emergency department. His thrombocytopenia largely remains unchanged at 118 today absolute neutrophils mildly increased, coagulation profile remains unchanged, he has mild hyponatremia at 134 blood sugars are mildly elevated and his troponins are decreasing 0.3-1 today. His CRP is elevated and his albumin is mildly low at 3.2 he has had 2 - Covid test in the last 48 hours. Principal Diagnosis bacteremia Discharge Exam Constitutional: well developed and well nourished; no altered mental status Eyes: + anicteric sclerae ENMT: external ear and nose normal, oropharynx normal Respiratory: normal respiratory effort, lungs clear to auscultation Cardiovascular: Rate/Rhythm: regular rate and regular rhythm Heart Sounds: normal S1, normal S2 and + murmur (1-2/6 RUSB systolic) Vessels: posterior tibial pulses present and dorsalis pedis pulses present; no JVD Extremities: no edema Gastrointestinal (Abdomen): normal bowel sounds, soft, nontender to deep palpation (unable to elicit pain), no hepatosplenomegaly Skin: right forearm; resolving IV infiltration (less swelling, less ecchymoses); about 2.5cm of venous cord/hardening in vesssel distal to elbow; not hot or warm or tender Psychiatric: Orientation: alert and oriented x 3 Discharge Data Allergies Allergy/AdvReac Type Severity Reaction Status Date / Time adhesive AdvReac Severe rips his Verified 07/30/20 17:25 skin Poison Ann Extract/Poison Allergy Severe RASH--NEEDS Uncoded 07/30/20 17:25 Gold Bar Extra STEROID SHOTS FOR REACTION Consultations 07/30/20 17:40 ED Decision to Admit Stat 07/31/20 15:18 Consult Infectious Diseases Routine 07/31/20 15:21 Consult Cardiology Routine 08/06/20 09:45 Burn CD for patient Routine Procedures Performed Operation Date: 08/04/20 08:00 Actual Procedures p Echo Transesophageal - Julius Cueva MD s Echo Doppler Complete - Julius Cueva MD s Echo Color Flow - Julius Cueva MD Ordered Studies 07/30/20 22:47 US liver Stat 08/04/20 14:36 CT angio chest w con Routine Hospital Course (1) Coag negative Staphylococcus bacteremia: Staph lugdunensis from blood cultures 07/29-07/31. 08/01 blood cultures -- / bottles + for same. 08/03 cultures thus far negative. Rocephin/daptomycin changed to nafcillin IV on 08/01/20. 08/03 [facility] ID consult - they recommend changing nafcillin to ancef + gent (synergy) and ultimately rifampin. Ancef started 08/03. Gent started 08/04. Pharmacy to follow P/Ts. appreciate consultation. BREE findings reviewed w/ Dr Cueva - no obvious vegetation on pacer wires. No obvious vegetation on MV. ?small perivalvular abscess on AV/aortic root? radiology advised CTA chest. this was done, and no obvious AV or aortic root abscess seen. no PICC until blood is sterile/negative cultures from 08/03. given the BREE/CT findings hopefully pacer/ICD does not need removal. The issue however is that last evening patient had a fever of 38.1 C, WBC is also increasing from yesterday. Concern that this is due to infection not being adequately controlled, may need hardware removed. Patient is being transferred [facility] to determine if hardware needs removed or if recommend suppressive treatment. Patient is also having acute kidney injury: will closely monitor creatinine. Patient is agreeable to transfer. plan: 6 weeks of IV abx followed by possible lifelong suppressive oral abx. rifampin - add 08/09/2020 or later per ID from [facility] lastly - no obvious b/l shoulder or b/l knee infection clinically on exam (has hardware in both shoulders & left knee) (2) Septicemia: see bacteremia above WBC, crp, platelets all improved or improving fever curve resolving 08/01 cultures only 08/10 + 08/03 cultures thus far negative (3) Elevated troponin: Peak troponin was 0.5. Likely myocardial demand ischemia in setting of septicemia. No evidence of ACS. Continue ASA and coreg. (4) Aortic valvular disorder: Aortic valve replacement (bovine) and mitral valve repair at [facility] in 2016. Good valve function on echo (2D and BREE). BREE findings reviewed with Dr Cueva No obvious large vegetation on AV leaflets themselves there was ? perivalvular abscess on BREE but CTA chest did not substantiate this appreciate Dr Cueva's assistance (5) Hypertension: BPs cont to be low-normal Continue coreg but lower again to 6.25mg BID Continue flomax. Continue to hold MARNIE inh Low and low-normal BPs 2nd to septicemia/bacteremia. (6) IV infiltration: Right arm. Improving. Small amount of palpable firmness in the vessel itself but if phlebitis is present it is quite minimal aspirin prn cont to elevate cont to provide warmpacks overall appearance MUCH better relative to the weekend (7) Thrombocytopenia: Resolved. (8) BPH (benign prostatic hyperplasia): Continue tamsulosin & finasteride. (9) Elevated AST (SGOT): resolved. (10) Biventricular ICD (implantable cardioverter-defibrillator) in place: Noted. Placed at [facility]. Source for bacteremia?? no obvious vegetations on device wires on BREE today. for now device to remain - no obvious urgent need to explant the device. (11) Hyperlipidemia: resume statin as ast/alt now normal (12) Diarrhea: c diff neg abx-associated cont probiotics improved (13) DVT prophylaxis: heparin SC extensively updated this evening by phone questions answered care plan discussed (14) Abdominal pain: Pain continues to be improving. Unsure as to specific cause, however his abdominal exam is benign. will monitor his pain and signed out to evening hospitalist. If pain continues will consider a ct scan of abdomen and pelvis with contrast vs ultrasound. will defer to [facility] Total Time Total Time Spent Total Time Spent (In Minutes): 35 Discharge Plan Discharge Items Patient Disposition: Transfer Acute Care Hospital Reason For Visit: GRAM POSITIVE BACTEREMIA Discharge Diagnosis: gram positive bacteremia Condition on Discharge: Good Activity: Resume your previous activity Non-emergency contact: Primary Care Provider Call non-emergency contact if: you have any medication questions Follow-up/Referrals: Hemal Springer [Primary Care Provider] - Diet: Heart Healthy Stand-Alone Forms: [employer] [facility] Needl Medications and DC Order Prescriptions: No Action multivitamin Tablet 1 tab PO QAM RF: 0 atorvastatin 80 mg tablet 80 mg PO HS RF: 0 carvedilol 25 mg tablet 25 mg PO BID RF: 0 acetaminophen [Tylenol] 325 mg Tablet 650 mg PO QID PRN (Reason: FEVER/PAIN) RF: 0 aspirin 81 mg Tablet,Delayed Release (Dr/Ec) 81 mg PO DAILY RF: 0 tamsulosin 0.4 mg capsule 0.8 mg PO QPM RF: 0 lisinopril 40 mg tablet 40 mg PO QAM RF: 0 finasteride 5 mg tablet 5 mg PO QAM RF: 0 Phospha 250 Neutral 250 mg tablet 1 tab PO BID Qty: 6 RF: 0 doxycycline hyclate 100 mg tablet 100 mg PO BID 10 Days Qty: 20 RF: 0 Saima 128 1 applic OPR HS RF: 0 Admission Data Admit Date/Time: 07/30/20 21:08 Attending Provider: Matthew Perry Admit Provider: Saul Saunders Primary Care Provider: Hemal Springer Other Providers: Austin Leonardo ; Ambika Gonzalez ; Turner Cullen I. ; Joshua Garcia II ; Sangeeta Palma ; Yoseph Booth ; Eugenio Lloyd ; Silver Garcia ; [facility] Coding Level of Care Code D/C Day Management >30 mins Diagnoses Coag negative Staphylococcus bacteremia R78.81; B95.7 Septicemia A41.9 Elevated troponin R77.8 Aortic valvular disorder I35.9 Hypertension I10 Hypertension type: essential hypertension IV infiltration T80.1XXD Encounter type: subsequent encounter Thrombocytopenia D69.6 BPH (benign prostatic hyperplasia) N40.0 Lower urinary tract symptom presence: symptoms absent Elevated AST (SGOT) R74.01 Biventricular ICD (implantable cardioverter-defibrillator) in place Z95.810 Hyperlipidemia E78.2 Hyperlipidemia type: mixed hyperlipidemia Diarrhea R19.7 Diarrhea type: unspecified type DVT prophylaxis Z29.9 Abdominal pain R10.9 Time Spent (min) 35
[2020-08-06 18:03] LABS: BUN Creatinine Ratio 11.9 (10-20); Calcium 8.5 mg/dl (8.5-10.1); Creatinine Clr Calc Pharmacy 67.4 ml/min; Est GFR (African American) 62.7; Est GFR (Non-African American) 54.1; Potassium 4.2 mmol/L (3.5-5.1)
[2020-08-06 18:37] VITALS: BP 120/69; PULSE 75
[2020-08-07] MEDS ORDERED: GENTAMICIN TROUGH ONE (01:30)
== END 2020-08-06 20:35 | disposition short-term general hospital (02) | DRG 314 ==
LOC: ED 16:04 → SUATTDRO 21:08 → 3W 21:08